=== PATIENT | female | born 1950 | race Caucasian/White ===

== ENCOUNTER → 2016-09-16 | Outpatient (CLI) | payer BC, MEDICARE ==
[~2016-09-16] MED LIST: /ATOR40TA OR; /GLYB5TA OR; ALTA10CA OR; AMLO5TAB OR; AMLODIPINE BENAZEP; AMLODIPINE BENAZEPRI OR; AMLODIPINE PO; ASPI81TA83 OR; AUGMENTIN PO; BENAZEPRIL PO; CARV25TA OR; CARVEDILOL PO; CIPRO PO; COLA100C2 OR; GLUC1000 OR; GLUC500T OR; HYDR25TA6 OR; MAGN500T2 OR; POTA20TA OR; PRILOSEC PO; STOMACH MED PO; XANA0.25 OR
--- NOTE | 2016-09-16 11:26 | REP ---
Left foot four views: Comparison is 09/30/2015. There is mild demineralization. There are lytic changes in the distal phalange of the second digit as an interval change, compatible with the clinical impression of osteomyelitis. There is diffuse soft tissue edema of the second digit. There are no other lytic, blastic or destructive skeletal changes. There are mild osteoarthritic changes in the tarsal ossicles. There is a calcaneal plantar spur. Impression: Soft tissue edema of the second digit with lytic changes in the distal phalange of the second digit compatible with the clinical impression of osteomyelitis. I suspect there is also mild soft tissue edema over the dorsum of the foot. Calcaneal plantar spur. Mild tarsal osteoarthritis. Signed by Navid Myers MD 09/16/2016 11:17 A
== END ==
LOC: M RAD 09:34
PROVIDERS: ATTEND Family Medicine

== ENCOUNTER → 2016-09-29 | Outpatient (CLI) | payer BC, MEDICARE ==
[~2016-09-29] MED LIST changes: +ALPR2TAB3 PO; +AMLO5TAB2 PO; +ASPI325T PO; +ATOR40TA PO; +CARV12.5 PO; -CARV25TA OR; +CARV25TA PO; +CEPH500C PO; +GLYB5TA PO; +MAGN400C2 PO; +METF500T PO; +SPIR25TA2 PO
[2016-09-29 10:39] LABS: MEAN CORPUSCULAR HEMOGLOBIN 27.1 pg (27.0-33.0); MEAN CORPUSCULAR HGB CONC 32.7 g/dl (32.0-36.5); MEAN CORPUSCULAR VOLUME 82.7 fl (80.0-96.0); RED CELL DISTRIBUTION WIDTH 14.7 % (11.5-14.5); WHITE BLOOD COUNT 7.3 K/mm3 (4.0-10.0)
[2016-09-29 10:43] LABS: INR 1.08
[2016-09-29 10:44] LABS: ALBUMIN 3.8 GM/DL (3.2-5.2); ALBUMIN/GLOBULIN RATIO 0.79 (1.00-1.93); ALKALINE PHOSPHATASE 188 U/L (45-117); ALT/SGPT 89 U/L (12-78); ANION GAP 7 MEQ/L (8-16); AST/SGOT 27 U/L (15-37); BILIRUBIN,TOTAL 0.9 MG/DL (0.2-1.0); BLOOD UREA NITROGEN 16 MG/DL (7-18); CALCIUM LEVEL 9.2 MG/DL (8.8-10.2); CARBON DIOXIDE LEVEL 29 MEQ/L (21-32); CHLORIDE LEVEL 100 MEQ/L (98-107); CREATININE FOR GFR 0.85 MG/DL (0.55-1.02); GLOMERULAR FILTRATION RATE > 60.0 (>45); GLUCOSE, FASTING 255 MG/DL (80-110); POTASSIUM SERUM 4.7 MEQ/L (3.5-5.1); SODIUM LEVEL 136 MEQ/L (136-145); TOTAL PROTEIN 8.6 GM/DL (6.4-8.2)
--- NOTE | 2016-09-29 12:45 | REP ---
Chest two views HISTORY: Hypertension Comparison: 02/10 15 The lungs are clear. The heart is normal in size. The pulmonary vasculature is normal in appearance. The bony structure is intact. IMPRESSION: No acute disease. Signed by Jono Giordano MD 09/29/2016 12:36 P
--- NOTE | 2016-09-29 18:59 | ECGEPIP ---
Stationary ECG Study [facility] Test Date: 2016-09-29 Pat Name: JUAN SHELDON Department: Room: - Gender: F Parole Or Probation Officer: NHAN : 1950 Requested By: Sivakumar Gordon Order Number: [id number] Reading MD: Regan Kiser Measurements Intervals [place] Rate: 65 P: [place]: 0 QRS: 51 QRSD: 77 T: 52 QT: 386 QTc: 404 Interpretive Statements ATRIAL FIBRILLATION Nonspecific ST-T wave abnormalities Electronically Signed On 09-29-2016 18:58:39 EDT by Regan Kiser
== END ==
LOC: M LAB 09:29
PROVIDERS: ATTEND Family Medicine
DX: I10 Essential (primary) hypertension (principal)

== ENCOUNTER → 2016-09-29 | Outpatient (REF) | payer BC, MEDICARE | LOC: M LAB REF 09:31 | PROVIDERS: ATTEND Podiatrist | DX: Z01.818 Encounter for other preprocedural examination (principal); M86.672 Other chronic osteomyelitis, left ankle and foot; L97.522 Non-pressure chronic ulcer of other part of left foot with fat layer exposed ==

== ENCOUNTER → 2016-10-02 | Day surgery (SDC) | payer BC, MEDICARE ==
[~2016-10-02] VITALS: Ht 160 cm; Wt 78.0 kg
[~2016-10-02] MED LIST changes: +BUPIVACAINE HCL 0.5% 30 ML VIAL As Ordered ONE; +HumaLOG INSULIN (NovoLOG) PER UNIT As Ordered ONE; +HumaLOG INSULIN (NovoLOG) PER UNIT SC ONE; +LIDOCAINE 2% INJ 100 MG/5 ML SDV (FOR ANES.) As Ordered ONE; +LIDOCAINE 2% MDV 20 ML VIAL As Ordered ONE; +LR 1,000 ML IV SCH; +MIDAZOLAM INJ 2 MG/2 ML VIAL (J2250) As Ordered ONE; +ONDANSETRON 4MG/2ML VIAL (J2405) IV PRN; +PERCOCET 5MG/325MG TAB PO PRN; +PROPOFOL 200 MG/20 ML VIAL As Ordered ONE; +VANCOMYCIN HCL 1,000 MG, VIAL MATE ADAPTER 1 EACH in D5W 250 ML IV ONE; +VANCOMYCIN HCL 500 MG/10 ML VIAL (J3370) As Ordered ONE; +fentaNYL 100 MCG/2 ML INJECTION (J3010) As Ordered ONE
--- NOTE | 2016-10-02 17:44 | REP ---
Portable left foot three views pos top study: Comparisons 09/16/2016. There has been resection of the second digit at mid shaft of the proximal phalange . Surgical dressing is noted. Osteoarthritis of the tarsal ossicles and calcaneal plantar spur are again noted. There is chronic cortical thickening of the fourth metatarsal, unchanged from 09/29/2005 , possibly old post-traumatic change. Signed by Navid Myers MD 10/02/2016 05:36 P
[2016-10-02 18:40] VITALS: BP 176/72
--- NOTE | 2016-10-02 21:53 | RO ---
DATE OF PROCEDURE: 10/02/2016 PREOPERATIVE DIAGNOSIS: Osteomyelitis distal phalanx second toe left foot. POSTOPERATIVE DIAGNOSES: Osteomyelitis distal phalanx second toe left foot. OPERATIVE PROCEDURE: Partial second toe amputation left foot. SURGEON: Ralph Christina DPM DUMP ATTENDANT: None ANESTHESIA: Local Monitored anesthesia care (MAC) IRRIGATION: 1 liter of vancomycin with a low pressure pulsatile lavage system. HEMOSTASIS: None. DESCRIPTION OF OPERATION: On 10/02/2016, this 66-year-old female was taken from her hospital room to the operating room and placed on the operating room table in the supine position. Following the induction of IV sedation and local and regional anesthesia, the left lower extremity was prepped and draped in the usual aseptic manner. Sterile draping was completed and the following procedure was performed: PARTIAL SECOND TOE AMPUTATION LEFT FOOT: Attention was directed to the patient's second toe of the left foot. There was noted to be an ulcer to bone on the distal phalanx. At this time a modified fish mouth incision was placed just proximal to the proximal interphalangeal joint. Dissection was carried straight to bone. All bleeders as encountered were electrocoagulated. Utilizing a power saw an osteotomy was performed at the proximal interphalangeal joint from dorsal to plantar through and through at the anatomical neck. The toe was removed. Distal phalanx was debrided and sent to pathology for aerobic and anaerobic cultures. The wound was flushed with copious amounts of dilute vancomycin with a low pressure pulsatile lavage system. The wound was closed with #3-0 nylon suture in a simple interrupted type fashion. Attention was directed toward bandaging with sterile compressive bandage applied consisting of Adaptic, 4 x 4s, 4 x 4 splints, Alfreda, Kerlix and Coban. The patient having apparently tolerated the surgical procedure well, was taken from the operating room to the recovery room, vital signs stable, patient afebrile for further monitoring by the anesthesia department. All surgical specimens removed during the operative procedure were sent to pathology for gross and microscopic examination. Postoperative instructions were given upon discharge.
== END ==
LOC: EEVIPCON 12:22 → M SDC 12:22
PROVIDERS: ATTEND Podiatrist
DX: M86.172 Other acute osteomyelitis, left ankle and foot (principal); E08.42 Diabetes mellitus due to underlying condition with diabetic polyneuropathy; I10 Essential (primary) hypertension; E78.5 Hyperlipidemia, unspecified; F41.9 Anxiety disorder, unspecified; M12.9 Arthropathy, unspecified; G47.30 Sleep apnea, unspecified; Z79.899 Other long term (current) drug therapy; Z79.84 Long term (current) use of oral hypoglycemic drugs; Z79.82 Long term (current) use of aspirin; Z87.891 Personal history of nicotine dependence; Z86.14 Personal history of Methicillin resistant Staphylococcus aureus infection
CPT/HCPCS: 28825; 73630; 87070; 87075; 87076; 87077; 87186; 88304; 88311; J2250; J3010; J3370

== ENCOUNTER → 2017-03-26 | Outpatient (REF) | payer BC ==
[~2017-03-26] MED LIST changes: -ATOR40TA PO; +ATOR40TA75 PO; -BUPIVACAINE HCL 0.5% 30 ML VIAL As Ordered ONE; -HumaLOG INSULIN (NovoLOG) PER UNIT As Ordered ONE; -HumaLOG INSULIN (NovoLOG) PER UNIT SC ONE; -LIDOCAINE 2% INJ 100 MG/5 ML SDV (FOR ANES.) As Ordered ONE; -LIDOCAINE 2% MDV 20 ML VIAL As Ordered ONE; -LR 1,000 ML IV SCH; -METF500T PO; +METF500T13 PO; -MIDAZOLAM INJ 2 MG/2 ML VIAL (J2250) As Ordered ONE; -ONDANSETRON 4MG/2ML VIAL (J2405) IV PRN; -PERCOCET 5MG/325MG TAB PO PRN; -PROPOFOL 200 MG/20 ML VIAL As Ordered ONE; -VANCOMYCIN HCL 1,000 MG, VIAL MATE ADAPTER 1 EACH in D5W 250 ML IV ONE; -VANCOMYCIN HCL 500 MG/10 ML VIAL (J3370) As Ordered ONE; -fentaNYL 100 MCG/2 ML INJECTION (J3010) As Ordered ONE
== END ==
LOC: M LAB REF 15:50
PROVIDERS: ATTEND Podiatrist
DX: L03.032 Cellulitis of left toe (principal)

== ENCOUNTER 2017-09-10 07:26 | Emergency (ER) | payer BC ==
[2017-09-10] MEDS: BACTRIM 160MG/800MG DS TAB PO (09:08)
== END 2017-09-10 09:11 | disposition home or self-care (01) ==
LOC: M ED 07:26
DX: L02.01 Cutaneous abscess of face (principal); L03.211 Cellulitis of face; L02.413 Cutaneous abscess of right upper limb; L03.113 Cellulitis of right upper limb; I10 Essential (primary) hypertension; E11.9 Type 2 diabetes mellitus without complications; E78.00 Pure hypercholesterolemia, unspecified; G47.30 Sleep apnea, unspecified; F41.9 Anxiety disorder, unspecified; Z86.14 Personal history of Methicillin resistant Staphylococcus aureus infection; Z79.899 Other long term (current) drug therapy; Z79.82 Long term (current) use of aspirin; Z79.84 Long term (current) use of oral hypoglycemic drugs; Z87.891 Personal history of nicotine dependence
CPT/HCPCS: 87186

== ENCOUNTER 2018-02-05 07:37 | Emergency (ER) | payer BC, MEDICARE ==
[2018-02-05 08:34] LABS: BASO % 0.4 % (0.0-1.0); EOS # 0.3 10^3/uL (0.0-0.50); EOS % 3.6 % (0.0-3.0); HEMATOCRIT 33.7 % (36.0-47.0); HEMOGLOBIN 11.3 g/dl (12.0-15.5); IMMATURE GRANULOCYTE % 0.5 % (0-3.0); LYMPH # 1.1 10^3/uL (1.5-4.5); LYMPH % 11.9 % (24.0-44.0); MEAN CORPUSCULAR HGB CONC 33.5 g/dl (32.0-36.5); MEAN CORPUSCULAR VOLUME 83.4 fl (80.0-96.0); MONO # 0.6 10^3/uL (0.0-0.8); MONO % 6.4 % (0.0-5.0); NEUTROPHILS % 77.2 % (36.0-66.0); PLATELET COUNT, AUTOMATED 187 10^3/uL (150-450); RED BLOOD COUNT 4.04 10^6/uL (4.00-5.40); RED CELL DISTRIBUTION WIDTH 13.6 % (11.5-14.5); WHITE BLOOD COUNT 9.1 10^3/uL (4.0-10.0)
[2018-02-05 08:57] LABS: ERYTHROCYTE SEDIMENTATION RATE 52 mm/hr (0-30)
[2018-02-05 09:09] LABS: ANION GAP 9 MEQ/L (8-16); BLOOD UREA NITROGEN 39 MG/DL (7-18); C REACTIVE PROTEIN QUANTITATIV 1.36 MG/DL (0.00-0.30); CALCIUM LEVEL 9.3 MG/DL (8.8-10.2); CARBON DIOXIDE LEVEL 26 MEQ/L (21-32); CHLORIDE LEVEL 107 MEQ/L (98-107); CREATININE FOR GFR 1.37 MG/DL (0.55-1.30); GLOMERULAR FILTRATION RATE 40.6 (>39); GLUCOSE, FASTING 196 MG/DL (70-100); POTASSIUM SERUM 4.5 MEQ/L (3.5-5.1); SODIUM LEVEL 142 MEQ/L (136-145)
== END 2018-02-05 09:46 | disposition home or self-care (01) ==
LOC: M ED 07:37
DX: N28.9 Disorder of kidney and ureter, unspecified (principal); I87.2 Venous insufficiency (chronic) (peripheral); E11.22 Type 2 diabetes mellitus with diabetic chronic kidney disease; L97.229 Non-pressure chronic ulcer of left calf with unspecified severity; L97.219 Non-pressure chronic ulcer of right calf with unspecified severity; I10 Essential (primary) hypertension; G47.33 Obstructive sleep apnea (adult) (pediatric); K21.9 Gastro-esophageal reflux disease without esophagitis; M54.9 Dorsalgia, unspecified; F41.9 Anxiety disorder, unspecified; Z89.422 Acquired absence of other left toe(s); Z87.891 Personal history of nicotine dependence; Z79.899 Other long term (current) drug therapy; Z79.82 Long term (current) use of aspirin; Z79.84 Long term (current) use of oral hypoglycemic drugs
CPT/HCPCS: 93970

== ENCOUNTER 2018-02-19 06:05 | Emergency (ER) | payer OTHER, BC, MEDICARE ==
[2018-02-19] MEDS: IBUPROFEN 600 MG TAB PO (06:45)
[2018-02-19] MEDS: NORCO 5/325MG TABLET (BULK FOR ED) PO (07:08)
== END 2018-02-19 07:11 | disposition home or self-care (01) ==
LOC: M ED 06:05
DX: S80.02XA Contusion of left knee, initial encounter (principal); W01.0XXA Fall on same level from slipping, tripping and stumbling without subsequent striking against object, initial encounter; Y92.59 Other trade areas as the place of occurrence of the external cause; Y99.0 Civilian activity done for income or pay; M17.12 Unilateral primary osteoarthritis, left knee; I10 Essential (primary) hypertension; E11.9 Type 2 diabetes mellitus without complications; F41.9 Anxiety disorder, unspecified; E78.9 Disorder of lipoprotein metabolism, unspecified; K21.9 Gastro-esophageal reflux disease without esophagitis; G47.33 Obstructive sleep apnea (adult) (pediatric); Z79.899 Other long term (current) drug therapy; Z79.82 Long term (current) use of aspirin; Z79.84 Long term (current) use of oral hypoglycemic drugs
CPT/HCPCS: 73564

== ENCOUNTER → 2018-03-17 | Outpatient (REF) | payer BC, MEDICARE | LOC: M LAB REF 17:43 | DX: L03.039 Cellulitis of unspecified toe (principal) | CPT/HCPCS: 87186 ==

== ENCOUNTER → 2018-07-20 | Outpatient (REF) | payer BC, MEDICARE ==
[~2018-07-20] MED LIST changes: -AMLO5TAB2 PO; +AMLO5TAB6 PO; +BACT800T5 PO; +CLEO300C2 PO; +MELO7.5T7; +SPIR-10 PO; -SPIR25TA2 PO
== END ==
LOC: M LAB REF 13:23
PROVIDERS: ATTEND Podiatrist
DX: L03.032 Cellulitis of left toe (principal)

== ENCOUNTER → 2018-07-29 | Outpatient (CLI) | payer BC, MEDICARE ==
[~2018-07-29] MED LIST changes: +SULF1TAB72 PO
[2018-07-29 14:04] LABS: BASO % 0.3 % (0.0-1.0); EOS # 0.2 10^3/uL (0.0-0.50); EOS % 3.1 % (0.0-3.0); HEMATOCRIT 30.1 % (36.0-47.0); HEMOGLOBIN 9.7 g/dl (12.0-15.5); LYMPH # 0.7 10^3/uL (1.5-4.5); LYMPH % 12.4 % (24.0-44.0); MEAN CORPUSCULAR HEMOGLOBIN 28.5 pg (27.0-33.0); MEAN CORPUSCULAR HGB CONC 32.2 g/dl (32.0-36.5); MEAN CORPUSCULAR VOLUME 88.5 fl (80.0-96.0); MONO # 0.3 10^3/uL (0.0-0.8); MONO % 5.8 % (0.0-5.0); NEUTROPHILS # 4.5 10^3/uL (1.8-7.7); NEUTROPHILS % 77.9 % (36.0-66.0); PLATELET COUNT, AUTOMATED 171 10^3/uL (150-450); WHITE BLOOD COUNT 5.8 10^3/uL (4.0-10.0)
[2018-07-29 14:19] LABS: ALBUMIN 3.6 GM/DL (3.2-5.2); BILIRUBIN,TOTAL 0.6 MG/DL (0.2-1.0); CALCIUM LEVEL 8.7 MG/DL (8.8-10.2); CREATININE FOR GFR 1.81 MG/DL (0.55-1.30); GLOMERULAR FILTRATION RATE 29.4 (>39); POTASSIUM SERUM 5.4 MEQ/L (3.5-5.1); TOTAL PROTEIN 7.5 GM/DL (6.4-8.2)
--- NOTE | 2018-07-29 14:30 | REP ---
Chest two views HISTORY: Chronic ulcer Comparison: 09/29/2016 The lungs are clear. The heart is normal in size. The pulmonary vasculature is normal in appearance. The bony structure is intact. IMPRESSION: No acute disease. Electronically Signed by Jono Giordano MD 07/29/2018 02:22 P
== END ==
LOC: M LAB 13:31
PROVIDERS: ATTEND Podiatrist
DX: L97.509 Non-pressure chronic ulcer of other part of unspecified foot with unspecified severity (principal)

== ENCOUNTER 2018-08-05 10:21 | Day surgery (SDC) | payer BC, MEDICARE ==
[~2018-08-05] VITALS: Ht 162.6 cm; Wt 79.4 kg
[~2018-08-05 10:21] MED LIST changes: +LR 1,000 ML IV SCH
[2018-08-05] MEDS ORDERED: ONDANSETRON 4MG/2ML VIAL (J2405) As Ordered ONE (10:47)
[2018-08-05] MEDS ORDERED: LIDOCAINE 2% INJ 100 MG/5 ML SDV (FOR ANES.) As Ordered ONE (10:47)
[2018-08-05] MEDS ORDERED: PROPOFOL 200 MG/20 ML VIAL As Ordered ONE (10:47)
[2018-08-05] MEDS ORDERED: fentaNYL 100 MCG/2 ML INJECTION (J3010) As Ordered ONE (10:47)
[2018-08-05] MEDS ORDERED: MIDAZOLAM INJ 2 MG/2 ML VIAL (J2250) As Ordered ONE (10:47)
[2018-08-05] MEDS ORDERED: BUPIVACAINE HCL 0.5% 10 ML VIAL As Ordered ONE (13:32)
[2018-08-05] MEDS ORDERED: LIDOCAINE 2% MDV 20 ML VIAL As Ordered ONE (13:32)
[2018-08-05] MEDS ORDERED: ROPIvacaine 0.5% 30 ML INJECTION (J2795 PER 1MG) As Ordered ONE (13:32)
[2018-08-05 15:10] VITALS: BP 137/65
--- NOTE | 2018-08-06 08:29 | RO ---
DATE OF PROCEDURE: 08/05/2018 PREPROCEDURE DIAGNOSIS: Osteomyelitis. 3rd toe left foot, distal phalanx. POSTPROCEDURE DIAGNOSIS: Osteomyelitis. 3rd toe left foot, distal phalanx. PROCEDURE: Partial 3rd toe amputation, left foot. SURGEON: Dr. Ralph Christina. ECONOMETRICS PROFESSOR: None ANESTHESIA: Local monitored anesthesia care (MAC). IRRIGATION: Dilute gentamicin solution with low pressure pulsed lavage system. ESTIMATED BLOOD LOSS: Less than 1 mL. DESCRIPTION OF PROCEDURE: On 08/05/2018, this 68-year-old female was taken from her hospital room to the operating room and placed on the operating table in supine position. Following the induction of IV sedation, local and regional anesthesia, the left lower extremity was prepped and draped in the usual aseptic manner. Sterile draping was completed and the following procedure was performed. PARTIAL 3RD TOE AMPUTATION, LEFT FOOT: Attention directed to the patient's 3rd toe where a modified fish-mouth incision was performed surrounding a stage IV ulcer with the distal phalanx sticking out the end of the 3rd toe. The incision was straight to bone. The toe was disarticulated from the proximal interphalangeal joint. The flap of skin was then retracted in a dorsal direction and an osteotomy was performed just proximal to the articular cartilage from dorsal to planar. All bleeders, as encountered were electrocoagulated. The wound was then flushed with 1 liter of dilute vancomycin solution with low pressure pulse lavage system. The wound was closed with #3-0 nylon suture in a simple interrupted type fashion. A dry sterile dressing was applied consisting of Adaptic, 4 x 4s, Kerlix and Coban. Patient having apparently tolerated the procedure well was taken from the operating room (OR) to the recovery room for further monitoring by the anesthesia department. RAULITO
== END 2018-08-05 15:20 | disposition home or self-care (01) ==
LOC: M SDC 10:21
PROVIDERS: ATTEND Podiatrist
DX: M86.172 Other acute osteomyelitis, left ankle and foot (principal); M79.675 Pain in left toe(s); L97.524 Non-pressure chronic ulcer of other part of left foot with necrosis of bone; E11.42 Type 2 diabetes mellitus with diabetic polyneuropathy; E11.51 Type 2 diabetes mellitus with diabetic peripheral angiopathy without gangrene; B35.1 Tinea unguium; Z79.84 Long term (current) use of oral hypoglycemic drugs; Z79.899 Other long term (current) drug therapy
CPT/HCPCS: 28825; 73630; 87070; 87075; 87077; 87186; 87205; 88305; 88311; J2250; J2405; J3010

== ENCOUNTER → 2018-09-26 | Outpatient (REF) | payer BC, MEDICARE ==
[~2018-09-26] MED LIST changes: -/ATOR40TA OR; -/GLYB5TA OR; +ASPI-1 PO; -ASPI325T PO; +GLYB1TAB29 OR; +LIPI1TAB2 OR; -LR 1,000 ML IV SCH
== END ==
LOC: M LAB REF 15:46
PROVIDERS: ATTEND Podiatrist
DX: M79.675 Pain in left toe(s) (principal)

== ENCOUNTER → 2019-02-14 | Outpatient (REF) | payer BC, MEDICARE | LOC: M LAB REF 18:57 | PROVIDERS: ATTEND Podiatrist | DX: L03.032 Cellulitis of left toe (principal); M79.675 Pain in left toe(s) ==

== ENCOUNTER 2019-04-09 06:06 | Emergency (ER) | payer BC, MEDICARE ==
[~2019-04-09] VITALS: Ht 162.6 cm; Wt 79.5 kg
[2019-04-09] MEDS ORDERED: ONDANSETRON 4MG/2ML VIAL (J2405) IV ONE ×2 (06:45→08:00)
[2019-04-09] MEDS ORDERED: KETOROLAC 30 MG/ML VIAL (J1885) IV ONE (06:45)
[2019-04-09 06:47] LABS: BASO % 0.3 % (0.0-1.0); EOS % 0.4 % (0.0-3.0); HEMATOCRIT 37.2 % (36.0-47.0); HEMOGLOBIN 12.4 g/dl (12.0-15.5); LYMPH # 0.7 10^3/uL (1.5-5.0); LYMPH % 6.6 % (24.0-44.0); MEAN CORPUSCULAR HEMOGLOBIN 29.3 pg (27.0-33.0); MEAN CORPUSCULAR HGB CONC 33.3 g/dl (32.0-36.5); MEAN CORPUSCULAR VOLUME 87.9 fl (80.0-96.0); MONO # 0.6 10^3/uL (0.0-0.8); MONO % 5.8 % (0.0-5.0); NEUTROPHILS % 86.2 % (36.0-66.0); PLATELET COUNT, AUTOMATED 179 10^3/uL (150-450); RED BLOOD COUNT 4.23 10^6/uL (4.00-5.40); WHITE BLOOD COUNT 10.4 10^3/uL (4.0-10.0)
[2019-04-09 07:03] LABS: ALBUMIN 4.1 GM/DL (3.2-5.2); ALT/SGPT 21 U/L (12-78); AMYLASE 35 U/L (25-115); BILIRUBIN,DIRECT 0.3 MG/DL (0.0-0.2); BILIRUBIN,TOTAL 1.1 MG/DL (0.2-1.0); BLOOD UREA NITROGEN 16 MG/DL (7-18); CALCIUM LEVEL 9.8 MG/DL (8.8-10.2); CARBON DIOXIDE LEVEL 24 MEQ/L (21-32); CHLORIDE LEVEL 102 MEQ/L (98-107); CK-MB VALUE MASS 1.6 NG/ML (<3.6); CPK CREATINE PHOSPHOKINASE 120 U/L (26-192); CREATININE FOR GFR 1.03 MG/DL (0.55-1.30); GLOMERULAR FILTRATION RATE 56.2 (>39); GLUCOSE, FASTING 198 MG/DL (70-100); LIPASE 46 U/L (73-393); MB/CK RELATIVE INDEX 1.33 (< OR =4); POTASSIUM SERUM 4.3 MEQ/L (3.5-5.1); SODIUM LEVEL 133 MEQ/L (136-145); TOTAL PROTEIN 9.3 GM/DL (6.4-8.2); TROPONIN I < 0.02 NG/ML (< 0.10)
[2019-04-09 07:27] LABS: INR 1.17; PROTHROMBIN TIME 14.7 SECONDS (11.8-14.0)
[2019-04-09 07:28] LABS: PARTIAL THROMBOPLASTIN TIME 34.4 SECONDS (25.0-38.4)
--- NOTE | 2019-04-09 07:51 | REPVR ---
PROCEDURE INFORMATION: Exam: CT Head Without Contrast Exam date and time: 04/09/2019 6:56 AM Clinical history: 69 years old, female; Altered mental status/memory loss; Confusion or disorientation; Additional info: AMS TECHNIQUE: Imaging protocol: Computed tomography of the head without contrast. Radiation optimization: All CT scans at this facility use at least one of these dose optimization techniques: automated exposure control; mA and/or kV adjustment per patient size (includes targeted exams where dose is matched to clinical indication); or iterative reconstruction. COMPARISON: CT Head without contrast 10/01/2012 10:07 PM FINDINGS: Brain: There is mild, diffuse parenchymal volume loss, with progression compared to 2012. There is mild diffuse heterogeneity of the white matter attenuation, consistent with chronic white matter ischemic changes. There is a small rounded area of low attenuation in the right subinsular region, which may be a lacunar infarct. It is not seen on the prior exam from 2012, but the age is indeterminate, and it may be chronic. No parenchymal mass lesions or mass effect are identified. There is no evidence of intracranial hemorrhage. Ventricles: The ventricular system demonstrates mild diffuse compensatory enlargement, slightly larger than in 2013. Bones/joints: No acute fractures of the skull are identified. Sinuses: The visualized paranasal sinuses are clear. Mastoid air cells: The mastoid air cells are clear. Soft tissues: The soft tissues appear unremarkable. Vasculature: Atherosclerotic calcifications are seen in the cerebral arteries at the skull base. IMPRESSION: 1. Mild diffuse bone loss, with progression compared to 2012. 2. Small focal area of low attenuation in the right subinsular region, which may be a lacunar infarct, of indeterminate age. 3. No evidence of acute intracranial hemorrhage. Electronically signed by: Ana Roberto On 04/09/2019 07:50:35 AM
--- NOTE | 2019-04-09 07:58 | REPVR ---
PROCEDURE INFORMATION: Exam: US Abdomen Limited, Right Upper Quadrant Exam date and time: 04/09/2019 7:34 AM Clinical history: 69 years old, female; Abdominal pain; Additional info: Ruq pain, nausea TECHNIQUE: Imaging protocol: Real-time ultrasound of the abdomen with image documentation. Examination was focused on the right upper quadrant. COMPARISON: GALLBLADDER US 03/10/2013 8:[address] ABD PELVIS W/O CONTRAST 04/19/2014 8:47:51 AM FINDINGS: Liver: There 2 shadowing echogenic foci in the right lobe of the liver, corresponding with calcifications seen on the prior CT scan. The liver appears mildly echogenic and somewhat coarse in echotexture. Gallbladder: The gallbladder is distended, measuring 13.6 x 5.3 cm. The gallbladder wall is slightly thickened at 4 mm. Small mobile stones and sludge are seen in the gallbladder. The cytology technologist does not report tenderness over the gallbladder. Common bile duct: The common bile duct is dilated measuring up to 12 mm in diameter, compared to a measurement of 9 mm obtained on the prior ultrasound from 2012. No significant intrahepatic biliary ductal dilation is identified. Pancreas: The pancreas is obscured. Right kidney: The right kidney is normal in size and echogenicity with no hydronephrosis or stones identified. The right kidney measures 10.8 cm in length. IMPRESSION: 1. Distended gallbladder with slight thickening of the gallbladder wall and mobile stones in the gallbladder. The findings are suspicious for acute cholecystitis but the technologist did not elicit a sonographic Armijo sign. 2. Dilation of the common bile duct to 12 mm compared to 9 mm on the prior ultrasound. No significant intrahepatic ductal dilation identified. 3. Mildly echogenic liver. Electronically signed by: Ana Roberto On 04/09/2019 07:58:01 AM
[2019-04-09 08:01] VITALS: BP 174/74
[2019-04-09] MEDS ORDERED: ZOFR4TAB16 PO (08:15)
--- NOTE | 2019-04-10 19:56 | ECGEPIP ---
[facility] - ED Test Date: 2019-04-09 Pat Name: JUAN SHELDON Department: Room: - Gender: Female Alligator Trapper: MASOUD : 1950 Requested By: MODESTO Driver PA-C Order Number: [id number] Reading MD: Erickson Robb Measurements Intervals [place] Rate: 103 P: [place]: 0 QRS: 49 QRSD: 97 T: 60 QT: 345 QTc: 453 Interpretive Statements ATRIAL FIBRILLATION WITH RAPID VENTRICULAR RESPONSE NONSPECIFIC ST & T-WAVE ABNORMALITY VS ISCHEMIA - INFEROLATERAL LEADS ABNORMAL RHYTHM ECG LOW QRS VOLTAGE LIMB LEADS CW 09/29/[address] T WAVE CHANGES VS ISCHEMIA INFEROLATERAL LEADS CLINICAL CORRELATION ADVISED Electronically Signed on 04-10-2019 19:56:33 EDT by Erickson Robb
--- NOTE | 2019-04-11 10:57 | ED PDOC ---
Post-Departure Follow-Up dr llanos and dr velarde faxed formal report of us for fu Erickson Ghotra MD Apr 11, 2019 10:57
== END 2019-04-09 08:21 | disposition home or self-care (01) ==
LOC: M ED 06:06
DX: K80.20 Calculus of gallbladder without cholecystitis without obstruction (principal); R41.82 Altered mental status, unspecified; I48.91 Unspecified atrial fibrillation; E78.5 Hyperlipidemia, unspecified; I10 Essential (primary) hypertension; G47.30 Sleep apnea, unspecified; K21.9 Gastro-esophageal reflux disease without esophagitis; E11.319 Type 2 diabetes mellitus with unspecified diabetic retinopathy without macular edema; Z79.899 Other long term (current) drug therapy
CPT/HCPCS: 36415; 76705; 80048; 80076; 82150; 82550; 82553; 83690; 84484; 85025; 85610; 85730; 93005; 93041; 96374; 96375; 96376; 99284; J1885; J2405

== ENCOUNTER → 2019-05-09 | Outpatient (REF) | payer BC, MEDICARE ==
[~2019-05-09] MED LIST changes: +BAYE325T16 PO; +CHOL100029 PO; +CRAN400C PO; +FISH1000 PO; +IRON27TA2 PO; +ZOFR4TAB16 PO
== END ==
LOC: M LAB REF 12:49
PROVIDERS: ATTEND Podiatrist
DX: M86.9 Osteomyelitis, unspecified (principal); M79.672 Pain in left foot

== ENCOUNTER → 2019-05-16 | Outpatient (CLI) | payer BC, MEDICARE ==
[2019-05-16 12:29] LABS: HEMATOCRIT 31.9 % (36.0-47.0); HEMOGLOBIN 10.3 g/dl (12.0-15.5); MEAN CORPUSCULAR HEMOGLOBIN 28.2 pg (27.0-33.0); MEAN CORPUSCULAR HGB CONC 32.3 g/dl (32.0-36.5); MEAN CORPUSCULAR VOLUME 87.4 fl (80.0-96.0); PLATELET COUNT, AUTOMATED 176 10^3/uL (150-450); RED BLOOD COUNT 3.65 10^6/uL (4.00-5.40); WHITE BLOOD COUNT 5.8 10^3/uL (4.0-10.0)
--- NOTE | 2019-05-16 12:31 | REP ---
Clinical: Preoperative assessment . Comparison: 07/29/2018 . Technique: PA and lateral. Findings: The mediastinum and cardiac silhouette are normal. The lung giron are clear and without acute consolidation, effusion, or pneumothorax. The skeletal structures are intact and normal. Impression: 1. No acute cardiopulmonary process. Electronically Signed by Jose C Coppola MD 05/16/2019 12:23 P
[2019-05-16 12:41] LABS: INR 1.2; PROTHROMBIN TIME 14.9 SECONDS (11.8-14.0)
[2019-05-16 13:14] LABS: ALBUMIN 3.4 GM/DL (3.2-5.2); BILIRUBIN,TOTAL 0.9 MG/DL (0.2-1.0); CALCIUM LEVEL 9.5 MG/DL (8.8-10.2); CHOLESTEROL RISK RATIO 2.875 (<5); CREATININE FOR GFR 1.47 MG/DL (0.55-1.30); GLOMERULAR FILTRATION RATE 37.3 (>39); POTASSIUM SERUM 4.7 MEQ/L (3.5-5.1); THYROID STIMULATING HORMONE 0.904 uIU/ML (0.358-3.740); TOTAL 25(OH) VITAMIN D 46.8 NG/ML (30.0-100.0); TOTAL PROTEIN 7.8 GM/DL (6.4-8.2)
[2019-05-16 13:37] LABS: HEMOGLOBIN A1c 7.8 %
--- NOTE | 2019-05-17 17:28 | ECGEPIP ---
[facility] Test Date: 2019-05-16 Pat Name: JUAN SHELDON Department: Room: - Gender: Female Senior Teller: GERTRUDE : 1950 Requested By: Sivakumar Gordon Order Number: [id number] Reading MD: Regan Kiser Measurements Intervals [place] Rate: 71 P: [place]: 0 QRS: 51 QRSD: 94 T: 32 QT: 401 QTc: 436 Interpretive Statements ATRIAL FIBRILLATION NONSPECIFIC ST & T-WAVE ABNORMALITY Rate decreased from tracing done 04-09-19 Electronically Signed on 05-17-2019 17:27:51 EST by Regan Kiser
== END ==
LOC: M LAB 11:34
PROVIDERS: ATTEND Family Medicine
DX: Z01.818 Encounter for other preprocedural examination (principal)

== ENCOUNTER → 2019-05-16 | Outpatient (CLI) | payer BC, MEDICARE ==
[2019-05-16 13:00] LABS: BILIRUBIN,DIRECT 0.3 MG/DL (0.0-0.2); BILIRUBIN,TOTAL 1.2 MG/DL (0.2-1.0)
== END ==
LOC: M LAB 11:30
PROVIDERS: ATTEND Surgery
DX: K80.20 Calculus of gallbladder without cholecystitis without obstruction (principal)

== ENCOUNTER 2019-06-12 06:00 | Day surgery (SDC) | payer BC, MEDICARE ==
[~2019-06-12] VITALS: Ht 162.6 cm; Wt 71.2 kg
[~2019-06-12 06:00] MED LIST changes: +LIDOCAINE 1% MDV 20ML VIAL SQ PRN; +LR 1,000 ML IV ONE; -SULF1TAB72 PO; +SULF400T14 PO
[2019-06-12] MEDS ORDERED: BUPIVACAINE/EPIN 0.25% 30 ML VIAL As Ordered ONE (07:09)
[2019-06-12] MEDS ORDERED: PROPOFOL 200 MG/20 ML VIAL As Ordered ONE (07:15)
[2019-06-12] MEDS ORDERED: ROCURONIUM BROMIDE 50 MG/5 ML VIAL As Ordered ONE (07:15)
[2019-06-12] MEDS ORDERED: fentaNYL 250 MCG/5 ML INJECTION (J3010) As Ordered ONE (07:15)
[2019-06-12] MEDS ORDERED: LIDOCAINE 2% INJ 100 MG/5 ML SDV (FOR ANES.) As Ordered ONE (07:15)
[2019-06-12] MEDS ORDERED: MIDAZOLAM INJ 2 MG/2 ML VIAL (J2250) As Ordered ONE (07:16)
[2019-06-12] MEDS ORDERED: HumaLOG INSULIN (NovoLOG) PER UNIT As Ordered ONE (07:19)
[2019-06-12] MEDS ORDERED: KETOROLAC 60 MG/2 ML VIAL (J1885) As Ordered ONE (07:59)
[2019-06-12] MEDS ORDERED: METOCLOPRAMIDE INJ 10MG/2ML VIAL (J2765) As Ordered ONE (07:59)
[2019-06-12] MEDS ORDERED: ONDANSETRON 4MG/2ML VIAL (J2405) As Ordered ONE (07:59)
[2019-06-12] MEDS ORDERED: HumuLIN R (REGULAR) INSULIN (NovoLIN R) **100U/ML** PER UNIT SC ONE (08:00)
[2019-06-12] MEDS ORDERED: SUGAMMADEX SODIUM 500 MG/5 ML VIAL (BRIDION) As Ordered ONE (08:00)
[2019-06-12] MEDS ORDERED: ACETAMINOPHEN 1000MG 100ML IV BTL (OFIRMEV) (J0131 PER 10MG) As Ordered ONE (08:21)
[2019-06-12] MEDS ORDERED: ONDANSETRON 4MG/2ML VIAL (J2405) IV PRN (09:15)
[2019-06-12] MEDS ORDERED: LR 1,000 ML IV SCH (09:15)
[2019-06-12] MEDS ORDERED: HYDROMORPHONE HCL 0.5 MG/ 0.5 ML SYRINGE (J1170 PER 1) IV PRN (09:15)
[2019-06-12] MEDS ORDERED: fentaNYL 100 MCG/2 ML INJECTION (J3010) IV PRN (09:15)
[2019-06-12] MEDS: oxyCODONE 5MG TAB PO PRN ×2 (09:51→10:45)
[2019-06-12] MEDS ORDERED: NORCO, ANEXSIA 5/325MG TABLET (HYDROcodone/ACETAMINOPHEN) PO PRN (10:16)
[2019-06-12] MEDS ORDERED: oxyCODONE 5MG TAB As Ordered ONE (10:43)
--- NOTE | 2019-06-12 11:52 | RO ---
DATE OF OPERATION: 06/12/2019 PREOPERATIVE DIAGNOSIS: Symptomatic cholelithiasis. POSTOPERATIVE DIAGNOSIS: Symptomatic cholelithiasis. PROCEDURE: Robotic cholecystectomy. SURGEON: Navid Coyne DO HOTEL ATTENDANT: None. ANESTHESIA: General. ESTIMATED BLOOD LOSS (EBL): 5. COMPLICATION: None. INDICATION FOR PROCEDURE: The patient is a 69-year-old female with persistent right upper quadrant pain, found have symptomatic cholelithiasis. Recommendation was to proceed with robotic cholecystectomy. Risks and benefits of the procedure not limited to but including bleeding, infection, hernia formation, damage to surrounding structures, need for further surgery were discussed in detail with the patient, and informed consent was obtained, and procedure was planned. DESCRIPTION OF PROCEDURE: The patient brought back to operating room #7 after sufficient sedation. The abdomen was sterilely prepped and draped. Next, time-out was done to confirm proper patient and proper procedure. Following that, an 8-mm incision was made in the left lower quadrant, Veress needle inserted, and the abdomen was insufflated to 15 mmHg. Next, Veress needle was removed. An 8-mm Optiview port was used to gain access to the abdomen. The abdomen was entered. Three more robotic ports were placed across the upper abdomen. The robot was then connected to the ports. Next, from the console, the fundus of the gallbladder was elevated up towards right shoulder. The cystic duct and cystic artery were carefully dissected free using a combination of blunt and sharp dissection. Once they were both clearly identified, they were both doubly clipped and cut. The gallbladder was then dissected free from the gallbladder fossa using electrocautery. It was removed intact without any leakage of bile, placed inside of a 5-mm Endo Catch bag, and brought out through the most lateral port site on the right. Once the gallbladder was removed, the fascia and peritoneum at the lateral port site on the right was closed with a 2-0 V-Loc suture. Once that was completed, the abdomen was desufflated. Skin incisions were closed with 4-0 Vicryl subcuticular sutures. The abdomen was cleaned and dried. Steri-Strips, 4 x 4, and tape were applied, thus ending the procedure.
[2019-06-12 12:00] VITALS: BP 150/66
== END 2019-06-12 12:05 | disposition home or self-care (01) ==
LOC: M SDC 06:00
PROVIDERS: ATTEND Surgery
DX: K80.10 Calculus of gallbladder with chronic cholecystitis without obstruction (principal); I10 Essential (primary) hypertension; E78.00 Pure hypercholesterolemia, unspecified; E11.621 Type 2 diabetes mellitus with foot ulcer; F41.9 Anxiety disorder, unspecified; G47.30 Sleep apnea, unspecified; Z86.14 Personal history of Methicillin resistant Staphylococcus aureus infection; Z79.899 Other long term (current) drug therapy; Z79.82 Long term (current) use of aspirin; Z79.84 Long term (current) use of oral hypoglycemic drugs
CPT/HCPCS: 47562; 88304; J0131; J1885; J2250; J2405; J2765; J3010

== ENCOUNTER 2019-07-12 20:03 | Emergency (ER) | payer BC, MEDICARE ==
[~2019-07-12] VITALS: Ht 162.6 cm; Wt 70.9 kg
[~2019-07-12 20:03] MED LIST changes: -LIDOCAINE 1% MDV 20ML VIAL SQ PRN; -LR 1,000 ML IV ONE
[2019-07-12 20:41] LABS: BASO % 0.3 % (0.0-1.0); EOS # 0.1 10^3/uL (0.0-0.5); EOS % 0.9 % (0.0-3.0); HEMOGLOBIN 11.6 g/dl (12.0-15.5); LYMPH # 0.9 10^3/uL (1.5-5.0); LYMPH % 8.9 % (24.0-44.0); MEAN CORPUSCULAR HEMOGLOBIN 27.8 pg (27.0-33.0); MEAN CORPUSCULAR HGB CONC 32.2 g/dl (32.0-36.5); MEAN CORPUSCULAR VOLUME 86.1 fl (80.0-96.0); MONO # 0.5 10^3/uL (0.0-0.8); MONO % 4.7 % (0.0-5.0); NEUTROPHILS # 8.1 10^3/uL (1.5-8.5); NEUTROPHILS % 84.4 % (36.0-66.0); PLATELET COUNT, AUTOMATED 167 10^3/uL (150-450); RED BLOOD COUNT 4.18 10^6/uL (4.00-5.40); WHITE BLOOD COUNT 9.6 10^3/uL (4.0-10.0)
[2019-07-12 21:11] LABS: BILIRUBIN,DIRECT 0.5 MG/DL (0.0-0.2); BILIRUBIN,TOTAL 1.4 MG/DL (0.2-1.0); TOTAL PROTEIN 8.2 GM/DL (6.4-8.2)
[2019-07-12] MEDS ORDERED: OMEP-218 PO (21:11)
[2019-07-12] MEDS ORDERED: NS 1,000 ML IV ONE (21:45)
[2019-07-13] MEDS ORDERED: NS 500 ML IV ONE (02:30)
[2019-07-13 03:45] VITALS: BP 142/76
== END 2019-07-13 04:02 | disposition home or self-care (01) ==
LOC: M ED 20:03
DX: R19.7 Diarrhea, unspecified (principal); E86.0 Dehydration; I48.91 Unspecified atrial fibrillation; I10 Essential (primary) hypertension; E78.5 Hyperlipidemia, unspecified; K21.9 Gastro-esophageal reflux disease without esophagitis; Z79.899 Other long term (current) drug therapy; Z79.84 Long term (current) use of oral hypoglycemic drugs

== ENCOUNTER → 2019-07-15 | Outpatient (REF) | payer BC, MEDICARE ==
[~2019-07-15] MED LIST changes: +OMEP-218 PO
== END ==
LOC: M LAB REF 10:00
DX: K92.9 Disease of digestive system, unspecified (principal)

== ENCOUNTER → 2019-10-24 | Outpatient (CLI) | payer BC, MEDICARE ==
[~2019-10-24] MED LIST changes: +ALPR0.5T3 PO; +AMLO1TAB24 PO; +AMLO1TAB25 PO; -AMLO5TAB6 PO; +ASPI325T55 PO; +CHOL4PW PO; -GLYB5TA PO; +GLYB5TAB6 PO; +NOXI1TAB PO; +ROPI1TAB3 PO
[2019-10-24 14:44] LABS: HEMATOCRIT 31.3 % (36.0-47.0); HEMOGLOBIN 10.3 g/dl (12.0-15.5); MEAN CORPUSCULAR HEMOGLOBIN 28.4 pg (27.0-33.0); MEAN CORPUSCULAR HGB CONC 32.9 g/dl (32.0-36.5); MEAN CORPUSCULAR VOLUME 86.2 fl (80.0-96.0); PLATELET COUNT, AUTOMATED 168 10^3/uL (150-450); RED BLOOD COUNT 3.63 10^6/uL (4.00-5.40); WHITE BLOOD COUNT 4.7 10^3/uL (4.0-10.0)
[2019-10-24 15:03] LABS: INR 1.22; PROTHROMBIN TIME 15.1 SECONDS (11.8-14.0)
[2019-10-24 15:16] LABS: ALBUMIN 3.7 GM/DL (3.2-5.2); BILIRUBIN,TOTAL 1.5 MG/DL (0.2-1.0); CALCIUM LEVEL 9.3 MG/DL (8.8-10.2); CHOLESTEROL RISK RATIO 1.782 (<5); GLOMERULAR FILTRATION RATE 58.2 (>39); POTASSIUM SERUM 4.1 MEQ/L (3.5-5.1); THYROID STIMULATING HORMONE 1.54 uIU/ML (0.358-3.740); TOTAL PROTEIN 7.2 GM/DL (6.4-8.2)
[2019-10-24 16:02] LABS: HEMOGLOBIN A1c 7.6 %
== END ==
LOC: M LAB 13:39
PROVIDERS: ATTEND Family Medicine
DX: Z01.818 Encounter for other preprocedural examination (principal); I10 Essential (primary) hypertension

== ENCOUNTER → 2019-11-20 | Outpatient (CLI) | payer BC, MEDICARE ==
[~2019-11-20] MED LIST changes: -ALPR0.5T3 PO; -AMLO1TAB24 PO; -AMLO1TAB25 PO; +AMLO5TAB6 PO; +GLYB5TA PO; -GLYB5TAB6 PO; -ROPI1TAB3 PO
== END ==
LOC: M LABSMTC 09:59
PROVIDERS: ATTEND Anesthesiology
DX: Z03.818 Encounter for observation for suspected exposure to other biological agents ruled out (principal); Z11.59 Encounter for screening for other viral diseases
CPT/HCPCS: 87486; 87581; 87633; 87798; C9803

== ENCOUNTER 2019-11-22 08:33 | Day surgery (SDC) | payer BC, MEDICARE ==
[~2019-11-22] VITALS: Ht 162.6 cm; Wt 68.0 kg
[~2019-11-22 08:33] MED LIST changes: +NS 1,000 ML IV ONE
[2019-11-22] MEDS ORDERED: LIDOCAINE 2% 100MG/5ML SDV (FOR ANES.) As Ordered ONE (08:38)
[2019-11-22] MEDS ORDERED: propofoL 200 MG/20 ML VIAL As Ordered ONE (08:39)
--- NOTE | 2019-11-22 10:12 | ROOR ---
Patient Name: Rama Mars Procedure Date: 11/22/2019 9:46 AM Date of : 1950 Age: 69 Room: [facility] Gender: Female Note Status: Finalized Procedure: Colonoscopy Indications: Lower abdominal pain Providers: DO Jonathan Parrish MD: REJI SOUSA MD Requesting Provider: Medicines: Propofol per Anesthesia Complications: No immediate complications. Procedure: Pre-Anesthesia Assessment: - Prior to the procedure, a History and Physical was performed, and patient medications and allergies were reviewed. The patient is competent. The risks and benefits of the procedure and the sedation options and risks were discussed with the patient. All questions were answered and informed consent was obtained. Patient identification and proposed procedure were verified by the physician, the nurse, the anesthesiologist and the social service technician in the endoscopy suite. Mental Status Examination: alert and oriented. Airway Examination: normal oropharyngeal airway and neck mobility. Respiratory Examination: clear to auscultation. CV Examination: normal. Prophylactic Antibiotics: The patient does not require prophylactic antibiotics. Prior Anticoagulants: The patient has taken no previous anticoagulant or antiplatelet agents. ASA Grade Assessment: III - A patient with severe systemic disease. After reviewing the risks and benefits, the patient was deemed in satisfactory condition to undergo the procedure. The anesthesia plan was to use monitored anesthesia care (MAC). Immediately prior to administration of medications, the patient was re-assessed for adequacy to receive sedatives. The heart rate, respiratory rate, oxygen saturations, blood pressure, adequacy of pulmonary ventilation, and response to care were monitored throughout the procedure. The physical status of the patient was re-assessed after the procedure. The Colonoscope was introduced through the anus and advanced to the cecum, identified by appendiceal orifice and ileocecal valve. The colonoscopy was performed without difficulty. The patient tolerated the procedure well. Findings: Three hyperplastic polyps were found in the descending colon. The polyps were less than 5 mm in size. Estimated blood loss was minimal. The exam was otherwise without abnormality. Impression: - Three less than 5 mm polyps in the descending colon. - The examination was otherwise normal. - No specimens collected. Recommendation: - Patient has a contact number available for emergencies. The signs and symptoms of potential delayed complications were discussed with the patient. Return to normal activities tomorrow. Written discharge instructions were provided to the patient. - Await pathology results. - Repeat colonoscopy in 3 - 5 years for surveillance based on pathology results. - Return to my office at appointment to be scheduled. Navid Coyne DO 11/22/2019 10:12:02 AM Electronically signed by Navid Coyne DO Number of Addenda: 0 Note Initiated On: 11/22/2019 9:46 AM Estimated Blood Loss: Estimated blood loss was minimal.
[2019-11-22 10:30] VITALS: BP 151/67
== END 2019-11-22 10:45 | disposition home or self-care (01) ==
LOC: M OPP 08:33
PROVIDERS: ATTEND Surgery
DX: K63.5 Polyp of colon (principal); R10.30 Lower abdominal pain, unspecified; Z79.82 Long term (current) use of aspirin; Z79.84 Long term (current) use of oral hypoglycemic drugs; Z79.899 Other long term (current) drug therapy; Z87.891 Personal history of nicotine dependence

== ENCOUNTER 2020-04-13 16:11 | Inpatient (IN) | payer BC, MEDICARE ==
[~2020-04-13] VITALS: Ht 162.6 cm; Wt 69.1 kg
[~2020-04-13 16:11] MED LIST changes: +AMLO1TAB24 PO; -AMLO5TAB6 PO; -NS 1,000 ML IV ONE
[2020-04-13] MEDS ORDERED: NS 1,000 ML IV ONE ×2 (16:30→18:00)
[2020-04-13] MEDS ORDERED: ONDANSETRON 4MG/2ML VIAL IV ONE (16:30)
[2020-04-13 17:06] LABS: BASO % 0.7 % (0.0-1.0); EOS # 0.1 10^3/uL (0.0-0.5); EOS % 1.4 % (0.0-3.0); HEMATOCRIT 36.2 % (36.0-47.0); HEMOGLOBIN 11.7 g/dl (12.0-15.5); LYMPH # 0.9 10^3/uL (1.5-5.0); LYMPH % 15.7 % (24.0-44.0); MEAN CORPUSCULAR HGB CONC 32.3 g/dl (32.0-36.5); MEAN CORPUSCULAR VOLUME 83.6 fl (80.0-96.0); MONO # 0.3 10^3/uL (0.0-0.8); MONO % 5.8 % (0.0-5.0); NEUTROPHILS # 4.5 10^3/uL (1.5-8.5); NEUTROPHILS % 76.1 % (36.0-66.0); PLATELET COUNT, AUTOMATED 181 10^3/uL (150-450); RED BLOOD COUNT 4.33 10^6/uL (4.00-5.40); WHITE BLOOD COUNT 5.9 10^3/uL (4.0-10.0)
[2020-04-13] MEDS ORDERED: ISOVUE-370 76% 100ML VIAL As Ordered ONE (17:18)
--- NOTE | 2020-04-13 17:48 | REPVR ---
PROCEDURE INFORMATION: Exam: CT Abdomen And Pelvis With Contrast Exam date and time: 04/13/2020 5:23 PM Age: 70 years old Clinical indication: Abdominal pain; Generalized; Additional info: Abdominal pain and weight loss TECHNIQUE: Imaging protocol: Computed tomography of the abdomen and pelvis with intravenous contrast. Radiation optimization: All CT scans at this facility use at least one of these dose optimization techniques: automated exposure control; mA and/or kV adjustment per patient size (includes targeted exams where dose is matched to clinical indication); or iterative reconstruction. Contrast material: ISOVUE 370; Contrast volume: 100 ml; Contrast route: INTRAVENOUS (IV); COMPARISON: CT ABD PELVIS W/O CONTRAST 04/19/2014 8:47 AM FINDINGS: Lungs: No suspicious mass or airspace process in the visualized lung bases. Liver: Liver appears normal with no focal abnormality. Gallbladder and bile ducts: Gallbladder is surgically absent. Prominent central bile ducts, likely postcholecystectomy capacitance effect. Pancreas: Pancreas appears normal. No focal mass or peripancreatic inflammation. . Spleen: Spleen demonstrates a subcapsular low-density collection medially measuring 3.1 x 4.3 x 0.7 cm. No evidence of an acute splenic injury. Adrenal glands: Adrenal glands are normal in appearance. . Kidneys and ureters: Kidneys demonstrate bilateral simple fluid density cysts measuring up to 2.8 cm. There is an indeterminate density anterior lower pole right renal lesion on image 63 axial measuring 7 mm and indeterminate density left renal lesion posteriorly on image 63 measuring 13 mm. Stomach and bowel: No concerning asymmetry or abnormality at the GE junction. Stomach is distended with ingested material and fluid. No evidence of small bowel obstruction. Circumferential mural edema in the ascending colon is present without obstruction, concerning for a mass. No evidence of acute diverticulitis. Appendix: Normal caliber appendix is identified, with no adjacent inflammation. Intraperitoneal space: No pneumoperitoneum. Vasculature: Atherosclerotic calcifications in the coronary vessels. Atherosclerotic change present in the aorta, without aneurysm. Main portal and splenic veins enhance normally. Lymph nodes: No enlarged lymph nodes. Urinary bladder: Urinary bladder appears normal. Reproductive: Female reproductive organs appear unremarkable. Bones/joints: Bony structures are normal except for lumbar spine degenerative disc changes. Soft tissues: Unremarkable. IMPRESSION: 1. Circumferential mural edema involving the proximal ascending colon concerning for a nonobstructing neoplasm. 2. Indeterminate density lower pole left renal lesion and indeterminate density anterior lower pole right renal lesion. Measurements are given above. Consider outpatient sonography to determine if these are simply proteinaceous cysts. 3. Low-density subcapsular fluid collection, medial spleen 3.1 x 4.3 x 0.7 cm. Doubtful acute significance COMMENTS: Consistent with the [employer]'s Incidental Findings Committee white paper (J Am Jania Radiol 2018): Any incidental renal lesion less than 1 cm or classified as too small to characterize, or any incidental cystic renal lesion characterized as simple-appearing, is likely benign. No follow-up imaging is recommended for these lesions per consensus recommendations based on imaging criteria. Electronically signed by: Good Schmidt On 04/13/2020 17:48:52 PM
[2020-04-13] MEDS: HumaLOG INSULIN (NovoLOG) PER UNIT SC SCH (18:00)
[2020-04-13 18:10] LABS: ALBUMIN 3.8 GM/DL (3.2-5.2); ALT/SGPT 21 U/L (12-78); BILIRUBIN,DIRECT 0.2 MG/DL (0.0-0.2); BILIRUBIN,TOTAL 0.7 MG/DL (0.2-1.0); CK-MB VALUE MASS 1.8 NG/ML (<3.6); CPK CREATINE PHOSPHOKINASE 122 U/L (26-192); LIPASE 87 U/L (73-393); MB/CK RELATIVE INDEX 1.48 (< OR =4); TROPONIN I < 0.02 NG/ML (< 0.10)
[2020-04-13] MEDS ORDERED: AMLO1TAB25 PO (18:54)
[2020-04-13] MEDS ORDERED: CARV25TA PO (18:54)
[2020-04-13] MEDS ORDERED: ALPR0.5T3 PO (18:54)
[2020-04-13] MEDS ORDERED: ROPI1TAB3 PO ×2 (18:54)
[2020-04-13] MEDS ORDERED: NS 1,000 ML IV SCH (19:33)
--- NOTE | 2020-04-13 19:43 | HPEPDOC ---
[facility] Medical History & Physical Date of Admission Apr 13, 2020 Date of Service: Apr 13, 2020 Primary Care Physician: Sivakumar Kelley Attending Physician: VETO OSORIO MD History and Physical TIME OF SERVICE: 8:30 PM CHIEF COMPLAINT: Abdominal pain HISTORY OF PRESENT ILLNESS: This 70-year-old female has been having abdominal pain and diarrhea since May of last year after she had a lap jose. She was started on medications for the diarrhea which she feels helped a bit . In November she a c-scope with resection of a colon polyp. On Wednesday she developed nausea non-bloody emesis. On Wednesday she noticed that her appetite was poor, she had cramping lower abdomi nal pain, and fecal urgency that did not improve despite taking "the powder" she was given for diarrhea. Her diarrhea has been so bad that she has occasionally has occasionally woken up and found her clothes soiled with stool. This evening her co-workers found her slumped over but she was not unconscious. She has lost a bit of weight over the last week, but can't quantify the amount and reports fe eling cold all of the time; she denies having fevers or chills. REVIEW OF SYSTEMS: 12 point review of systems negative except as listed in HPI PAST MEDICAL/ SURGICAL HISTORY: NIDDM A fib (Xarelto discontinued bc of hematuria) Chronic HTN Moderate Pulm HTN Moderate aortic valve sclerosis DLP CAROL 6cm H20 Hx of cardiac ablation (per pt bc of "arrhythmia") Cataract surgery Cholecystectomy Cataract Surgery Partial toe amputation of 2 toes C-scope w polypectomy SOCIAL HISTORY: Former smoker Rarely drinks alcohol FAMILY HISTORY: Sister- pacemaker Father - lung cancer ALLERGIES: Please see below. HOME MEDICATIONS: Please see below. PHYSICAL EXAMINATION: Vital Signs Date Time Temp Pulse Resp B/P (MAP) Pulse Ox O2 Delivery O2 Flow Rate FiO2 04/13/20 16:22 97.6 85 16 135/66 100 Room Air GEN: well-nourished / well developed/ NAD INTEGUMENT: not flushed/ not jaundice HEENT: lips acyanotic /mucus membranes moist and pink / sclera anicteric CVS: RRR/NMRG/ radial pulses intact / no lower extremity edema LUNGS: able to speak full sentences without stopping to take a breath / no c oughing / lungs are clear to auscultation bilaterally on room air ABDOMEN: Contour (flat) / there are no masses / abdomen soft tender with palpation of the mid and right lower quadrant MSK/EXTREMITIES: NCAT / range of motion intact in all 4 extremities NEURO: CN 2-12 are grossly intact / speech is not dysarthric PSYCH: alert and oriented to person place and time/ able to understand and follow all commands LABORATORY DATA: 04/13/20 16:51 04/13/20 16:50: Total Bilirubin 0.7, Direct Bilirubin 0.2, Aspartate Amino Transf (AST/SGOT) 17, Alanine Aminotransferase (ALT/SGPT) 21, Alkaline Phosphatase 87, Total Creatine Kinase 122, Creatine Kinase MB 1.8, Creatine Kinase MB Relative Index 1.48, Troponin I < 0.02, Total Protein 8.0, Albumin 3.8, Albumin/Globulin Ratio 0.9L, Lipase 87 04/13/20 16:51: Immature Granulocyte % (Auto) 0.3, Neutrophils (%) (Auto) 76.1H, Lymphocytes (%) (Auto) 15.7L, Monocytes (%) (Auto) 5.8H, Eosinophils (%) (Auto) 1.4, Basophils (%) (Auto) 0.7, Neutrophils # (Auto) 4.5, Lymphocytes # (Auto) 0.9L, Monocytes # (Auto) 0.3, Eosinophils # (Auto) 0.1, Basophils # (Auto) 0.0, Nucleated Red Blood Cells % (auto) 0.0, Lactic Acid Level 2.4*H 04/13/20 16:59: POC Glucose (Misc Panel) 230H, POC Sodium (Misc Panel) 140, POC Potassium (Misc Panel) 3.9, POC Chloride (Misc Panel) 102, POC Total CO2 (Misc Panel) 23.0, POC Blood Urea Nitrogen (Misc Panel 21, POC Ionized Calcium (Misc Panel) 5.0, POC Creatinine (Misc Panel) 1.0, POC Hematocrit (Misc Panel) 33.0L IMAGING: CT abd/pelvis "1. Circumferential mural edema involving the proximal ascending colon concerning for a nonobstructing neoplasm. 2. Indeterminate density lower pole left renal lesion and indeterminate density anterior lower pole right renal lesion. Measurements are given above. Consider outpatient sonography to determine if these are simply proteinaceous cysts. 3. Low-density subcapsular fluid collection, medial spleen 3.1 x 4.3 x 0.7 cm. Doubtful acute significance MICROBIOLOGY: Please see below. ASSESSMENT: is a 70 yr old w a hx of NIDDM, A fib, HTN, Pulm HTN, lap jose and recent polypectomy who has been having worsening n/v/d and abdominal pain and was found slumped over at work this evening. She will be admitted for evaluation of vomiting, diarrhea, abdominal pain and pre-syncope. PLAN: 1. Nausea, vomiting, diarrhea Cause unclear Plan: admit to medical floor / f/u GI panel / Zofran, IVF / advance diet as tolerated / c/w cholestyramine 2. Abdominal pain Plan: morphine for pain / f/u GI panel 3. Presyncope Possibly 2/2 abdominal pain or orthostasis EKG showed afib Trop wnl Plan: telemetry / IVF / check orthostas 4. Edema of the ascending colon Possibly due to malignancy Plan: f/u w 5. Lactic acidosis Likely 2/2 dehydration She doesn't have SIRS Plan: IVF 6. Left renal lesion Plan: f/u w PCP for US on an out pt basis 7. Fluid collection at the spleen Plan: the day time team may consider additional imaging if warranted 8. NIDDM Plan: f/u accuchecks & A1C / hypoglycemia protocol / sliding scale insulin / hold oral anti-glycemics 9. A fib Xarelto discontinued bc of hematuria Plan: Coreg 10. Chronic HTN Plan: amlodipine, Coreg, spironolactone 11.Moderate Pulm HTN She mentioned that she had CHF but her EF was not low on her most recent Echo in [facility] Plan: monitor Is and Os 12.DLP Plan: atorvastatin 13.CAROL Plan: own CPAP DVT PROPHYLAXIS: SCDs DISPOSITION: home after more than 2 midnight's stay Home Medications Scheduled Alprazolam (Alprazolam) 0.5 Mg Tablet, 0.5 MG PO BID Amlodipine Besylate (Amlodipine Besylate) 10 Mg Tablet, 10 MG PO DAILY Aspirin (Aspirin) 325 Mg Tablet, 325 MG PO DAILY Atorvastatin Calcium (Atorvastatin Calcium) 40 Mg Tab, 40 MG PO DAILY Carvedilol (Carvedilol) 25 Mg Tablet, 25 MG PO BID Cholestyramine (Cholestyramine Packet) 4 Gm Powd.pack, 1 PKT PO DAILY Cranberry (Cranberry) 400 Mg Capsule, 800 MG PO DAILY Ferrous Gluconate (Iron) 236 Mg Tablet, 27 MG PO DAILY Glyburide (Glyburide) 5 Mg Tab, 5 MG PO DAILY Magnesium Oxide (Magnesium) 400 Mg Cap, 800 MG PO BID Metformin HCl (Metformin HCl) 500 Mg Tab, 500 MG PO BID [place]-3 Fatty Acids/Fish Oil (Fish Oil 1,000 mg Capsule) 1 Each Capsule, 2,000 MG PO DAILY Omeprazole (Omeprazole) 20 Mg Capsule.dr, 20 MG PO BID Spironolactone (Spironolactone) 25 Mg Tab, 25 MG PO DAILY Vitamin D3/Folic Acid (Noxifol-D3 2,500 Unit-1 mg Tab) 2,500 Unit Tablet, 1 TAB PO DAILY Scheduled PRN Ropinirole HCl (Ropinirole HCl) 1 Mg Tablet, 1 MG PO BID PRN for CRAMPS Allergies Coded Allergies: No Known Allergies (Unverified , 11/15/19) A-FIB/CHADSVASC A-FIB History Current/History of A-Fib/PAF?: Yes Current PO Anticoag Therapy: No Treatment Other anticoagulant ordered: hx of hematuria while on AC VETO OSORIO MD Apr 13, 2020 19:43
[2020-04-13] MEDS ORDERED: MOM 30ML SUSPENSION UDC PO PRN (19:45)
[2020-04-13] MEDS ORDERED: DEXTROSE 50% 50 ML SYRINGE IV PRN (19:45)
[2020-04-13] MEDS ORDERED: MORPHINE 2 MG/ML 1ML VIAL (J2270) IV PRN (19:45)
[2020-04-13] MEDS ORDERED: GLUCOSE 4GM CHEW TABLET PO PRN (19:45)
[2020-04-13] MEDS ORDERED: GLUCAGON INJ 1MG VIAL SC PRN (19:45)
[2020-04-13] MEDS ORDERED: ACETAMINOPHEN TAB 650MG DOSE (2X325MG) PO PRN (19:45)
[2020-04-13] MEDS ORDERED: MAALOX 30 ML SUSP *UDC PO PRN (19:45)
[2020-04-13] MEDS ORDERED: ONDANSETRON 4MG/2ML VIAL IV PRN (21:00)
--- NOTE | 2020-04-13 22:12 | ECGEPIP ---
[facility] - ED Test Date: 2020-04-13 Pat Name: JUAN SHELDON Department: Room: - Gender: Female Vocational Guidance Counselor: jorge : 1950 Requested By: Erickson Robb Order Number: [id number] Reading MD: Nirmal Moore Measurements Intervals [place] Rate: 72 P: [place]: 0 QRS: 43 QRSD: 101 T: -3 QT: 395 QTc: 433 Interpretive Statements ATRIAL FIBRILLATION NONSPECIFIC ST & T-WAVE ABNORMALITY SIMILAR TO 05/16/19 Electronically Signed on 04-13-2020 22:12:17 EDT by Nirmal Moore
[2020-04-13 22:29] VITALS: BP 126/72
[2020-04-13] MEDS ORDERED: rOPINIRole 1MG TAB PO PRN (23:00)
[2020-04-14] MEDS: OMEPRAZOLE 20 MG CAP PO SCH ×3 (01:04→20:47)
[2020-04-14] MEDS: CARVedilol 12.5 MG TAB PO SCH ×2 (01:11→08:39)
[2020-04-14 02:00] VITALS: BP_SYST 102; BP_SYST 110; BP_SYST 132; BP_DIAS 68; BP_DIAS 70; BP_DIAS 76
[2020-04-14 05:54] LABS: HEMATOCRIT 30.6 % (36.0-47.0); MEAN CORPUSCULAR HEMOGLOBIN 27.3 pg (27.0-33.0); MEAN CORPUSCULAR HGB CONC 32.7 g/dl (32.0-36.5); MEAN CORPUSCULAR VOLUME 83.6 fl (80.0-96.0); PLATELET COUNT, AUTOMATED 146 10^3/uL (150-450); RED BLOOD COUNT 3.66 10^6/uL (4.00-5.40); WHITE BLOOD COUNT 5.6 10^3/uL (4.0-10.0)
[2020-04-14 06:00] VITALS: BP_SYST 131; BP_SYST 133; BP_SYST 160; BP_SYST 165; BP_DIAS 58; BP_DIAS 59; BP_DIAS 66; BP_DIAS 68
[2020-04-14] MEDS: HumaLOG INSULIN (NovoLOG) PER UNIT SC SCH ×5 (06:00→23:55)
[2020-04-14 06:15] LABS: BLOOD UREA NITROGEN 10 MG/DL (7-18); CALCIUM LEVEL 8.2 MG/DL (8.8-10.2); CARBON DIOXIDE LEVEL 26 MEQ/L (21-32); CHLORIDE LEVEL 109 MEQ/L (98-107); CREATININE FOR GFR 0.71 MG/DL (0.55-1.30); GLOMERULAR FILTRATION RATE > 60.0 (>39); GLUCOSE, FASTING 176 MG/DL (70-100); POTASSIUM SERUM 3.3 MEQ/L (3.5-5.1); SODIUM LEVEL 141 MEQ/L (136-145)
[2020-04-14] MEDS ORDERED: POTASSIUM CHLORIDE 10 MEQ SR TABLET PO ONE (07:30)
[2020-04-14] MEDS: ASPIRIN 325 MG TAB PO SCH (08:38)
[2020-04-14] MEDS: amLODIPine 10 MG TAB PO SCH (08:38)
[2020-04-14] MEDS: ALPRAZolam 0.5 MG TAB PO SCH ×2 (08:39→20:47)
[2020-04-14] MEDS: SPIRONOLACTONE 25 MG TAB PO SCH (08:39)
[2020-04-14] MEDS: ATORVASTATIN 20 MG TAB PO SCH (08:39)
[2020-04-14] MEDS: CHOLESTYRAMINE 4 GM PWD PKT PO SCH (08:40)
--- NOTE | 2020-04-14 09:35 | ECGEPIP ---
[facility] Test Date: 2020-04-14 Pat Name: JUAN SHELDON Department: Room: [place] [address] Gender: Female Branch Associate: RF : 1950 Requested By: JUAN Driver Order Number: [id number] Reading MD: Ralph Rodas Measurements Intervals [place] Rate: 75 P: [place]: 0 QRS: 43 QRSD: 108 T: 41 QT: 414 QTc: 463 Interpretive Statements Atrial fibrillation with controlled ventricular response. Low limb lead voltages; body habitus versus pulmonary disease Nonspecific ST/T wave abnormalities No change from 04/13/20 Electronically Signed on 04-14-2020 9:34:51 EST by Ralph Rodas
[2020-04-14 10:00] VITALS: BP_SYST 128; BP_SYST 133; BP_SYST 134; BP_DIAS 61; BP_DIAS 64; BP_DIAS 66
[2020-04-14 14:00] VITALS: BP_SYST 142; BP_SYST 143; BP_SYST 148; BP_DIAS 61; BP_DIAS 62
[2020-04-14 18:00] VITALS: BP 148/63
[2020-04-14 18:29] LABS: BLOOD UREA NITROGEN 8 MG/DL (7-18); CALCIUM LEVEL 8.3 MG/DL (8.8-10.2); CARBON DIOXIDE LEVEL 28 MEQ/L (21-32); CHLORIDE LEVEL 110 MEQ/L (98-107); CREATININE FOR GFR 0.75 MG/DL (0.55-1.30); GLOMERULAR FILTRATION RATE > 60.0 (>39); GLUCOSE, FASTING 147 MG/DL (70-100); MAGNESIUM LEVEL 1.3 MG/DL (1.8-2.4); POTASSIUM SERUM 4.1 MEQ/L (3.5-5.1); SODIUM LEVEL 142 MEQ/L (136-145)
--- NOTE | 2020-04-14 18:39 | IPNPDOC ---
Subjective Date Seen The patient was seen on 04/14/20. Subjective Chief Complaint/HPI Ms. Mars is a 70 year old female with afib s/p ablation in 2003 here with abdominal pain and diarrhea since May of 2019. This morning, denies any fever, chest pain, or dyspnea. She does have lightheadedness with sitting up and is orthostatic positive. This morning, she was having multiple 3 second pauses. Spoke with her candy butcher, Dr. Rodas, who recommended stopping the Coreg today and decreasing the dose tomorrow. Objective Physical Examination General Exam: Positive: Alert, Cooperative Eye Exam: Positive: EOMI; Negative: Sclera icteric ENT Exam: Positive: Atraumatic Neck Exam: Positive: Supple Chest Exam: Positive: Clear to auscultation Heart Exam: Positive: Rate Normal, Regular Rhythm Abdomen Exam: Positive: Normal bowel sounds, Soft, Tenderness (mid to right lower quadrant) Extremity Exam: Negative: Cyanosis Neuro Exam: Positive: Cranial Nerves 3-12 NL Psych Exam: Positive: Mental status NL, Mood NL Assessment /Plan Assessment Ms. Mars is a 70 year old female here with abdominal pain and diarrhea. Imaging demonstrated edema of the ascending colon, but there is concern for malignancy. Dr. Joseph was consulted. Recommendations appreciated. Otherwise, patient does demonstrate orthostatic hypotension and frequent 3 second asympto matic pauses. She did have an ablation in 2003. Spoke with Dr. Rodas who recommended stopping the Coreg dose for today and starting a reduced dose tomorrow. Plan/VTE VTE Prophylaxis Ordered?: Yes Plan 1. Abdominal pain -She had N/V/D -Zofran, IVF, cholestyramine, and advance diet as tolerated -Pending GI panel -General surgery, Dr. Joseph was consulted. Recommendations appreciated. 2. Presyncope -Orthostatic vitals positive, has supine hypertension -Lightheadedness with sitting up -Spoke with cardiology, reduced the Coreg dose 3. Pauses -Tele demonstrated frequent 3 second pauses, but patient asymptomatic -Spoke with cardiology who recommended reducing Coreg dosage 4. Atrial fibrillation s/p ablation in 2003 -Cardiology recommends continuing Coreg -Not on AC due to hematuria 5. Hypertension -Continue amlodipine 6. Dyslipidemia -Atorvastatin 7. DM -Insulin sliding scale 8. DVT ppx -SCD/TEDs VS, I&O, 24H, Fishbone Vital Signs/I&O Vital Signs Date Time Temp Pulse Resp B/P (MAP) Pulse Ox O2 Delivery O2 Flow Rate FiO2 04/14/20 18:00 99.3 56 18 148/63 (91) 98 Room Air I&O- Last 24 Hours up to 6 AM 04/14/20 06:00 Intake Total 2520 ml Output Total 1200 ml Balance 1320 ml Laboratory Data 24H LABS Laboratory Tests 2 04/13/20 21:26: Lactic Acid Followup at 4 Hours 2.2*H 04/13/20 22:20: Bedside Glucose (Misc Panel) 103 04/14/20 00:53: Bedside Glucose (Misc Panel) 68L 04/14/20 02:38: Urine Color STRAW, Urine Appearance CLEAR, Urine pH 5.0, Urine Specific [place] 1.015, Urine Protein NEGATIVE, Urine Glucose (UA) NEGATIVE, Urine Ketones NEGATIVE, Urine Blood NEGATIVE, Urine Nitrite NEGATIVE, Urine Bilirubin NEGATIVE, Urine Urobilinogen 0.2, Urine Leukocyte Esterase NEGATIVE, Urine WBC (Auto) 0, Urine RBC (Auto) 0, Urine Hyaline Casts (Auto) 0, Urine Bacteria (Auto) 1+H, Urine Squamous Epithelial Cells 0, Urine Transitional Epithelial Cells <1, Urine Mucus (Auto) SMALL, Urine Sperm (Auto) 04/14/20 02:40: Bedside Glucose (Misc Panel) 79L 04/14/20 03:59: Bedside Glucose (Misc Panel) 179H 04/14/20 05:37: Nucleated Red Blood Cells % (auto) 0.0, Anion Gap 6L, Glomerular Filtration Rate > 60.0, Calcium Level 8.2L 04/14/20 07:50: Lactic Acid Level 1.7 04/14/20 12:17: Bedside Glucose (Misc Panel) 112H 04/14/20 16:55: Bedside Glucose (Misc Panel) 159H 04/14/20 17:27: CBC/BMP Laboratory Tests 04/14/20 05:37 Microbiology Microbiology 04/14/20 Gastrointestinal Tract Panel (PCR), Received Pending 04/13/20 Blood Culture - Preliminary, Resulted No growth after 24 hours . All specim... 04/13/20 Blood Culture - Preliminary, Resulted No growth after 24 hours . All specim... JUAN BOWER DO Apr 14, 2020 18:39
[2020-04-14 22:00] VITALS: BP 144/62
[2020-04-15] VITALS (7 sets, daily range): BP systolic 120–153; BP diastolic 50–78
[2020-04-15] MEDS: HumaLOG INSULIN (NovoLOG) PER UNIT SC SCH ×3 (06:00→17:28)
[2020-04-15 06:30] LABS: HEMATOCRIT 36.5 % (36.0-47.0); HEMOGLOBIN 11.7 g/dl (12.0-15.5); MEAN CORPUSCULAR HEMOGLOBIN 26.8 pg (27.0-33.0); MEAN CORPUSCULAR HGB CONC 32.1 g/dl (32.0-36.5); MEAN CORPUSCULAR VOLUME 83.7 fl (80.0-96.0); PLATELET COUNT, AUTOMATED 158 10^3/uL (150-450); RED BLOOD COUNT 4.36 10^6/uL (4.00-5.40); WHITE BLOOD COUNT 5.4 10^3/uL (4.0-10.0)
[2020-04-15 06:48] LABS: BLOOD UREA NITROGEN 7 MG/DL (7-18); CALCIUM LEVEL 9.1 MG/DL (8.8-10.2); CARBON DIOXIDE LEVEL 28 MEQ/L (21-32); CHLORIDE LEVEL 108 MEQ/L (98-107); CREATININE FOR GFR 0.69 MG/DL (0.55-1.30); GLOMERULAR FILTRATION RATE > 60.0 (>39); GLUCOSE, FASTING 87 MG/DL (70-100); POTASSIUM SERUM 3.7 MEQ/L (3.5-5.1); SODIUM LEVEL 142 MEQ/L (136-145)
[2020-04-15] MEDS: ALPRAZolam 0.5 MG TAB PO SCH ×2 (09:28→21:29)
[2020-04-15] MEDS: SPIRONOLACTONE 25 MG TAB PO SCH (09:28)
[2020-04-15] MEDS: OMEPRAZOLE 20 MG CAP PO SCH ×2 (09:28→21:29)
[2020-04-15] MEDS: CHOLESTYRAMINE 4 GM PWD PKT PO SCH (09:28)
[2020-04-15] MEDS: ASPIRIN 325 MG TAB PO SCH (09:28)
[2020-04-15] MEDS: ATORVASTATIN 20 MG TAB PO SCH (09:29)
[2020-04-15] MEDS: MAG SULF 1GM/100ML (MAG RUN) 1 GM in IV 1 EA IV SCH ×4 (09:31→14:26)
[2020-04-15] MEDS: CARVedilol 12.5 MG TAB PO SCH ×2 (10:12→21:29)
[2020-04-15] MEDS: amLODIPine 10 MG TAB PO SCH (10:12)
--- NOTE | 2020-04-15 10:48 | CR ---
DATE OF CONSULTATION: 04/14/2020 REASON FOR CONSULTATION: Abdominal pain and diarrhea with abnormal CT of the large intestine. HISTORY OF PRESENT ILLNESS: The patient is a 70-year-old woman who was admitted by the hospitalist on the evening of the 13 of April. The patient had presented to the emergency department wit a report of some abdominal pain over the last week or so. The patient reports that she has been having diarrhea since she underwent cholecystectomy in May of 2019. She was started on some cholestyramine, which she reports did help some. She has been having occasional crampy episodes. Over the last week, she has been feeling just ill overall with malaise. She has not had definite fevers or chills but has had some intermittent abdominal cramping. She works in [employer] at [employer] and had reported to work on the but was directed to the emergency department by her coworkers. She reports she has lost some weight. In the emergency department, she underwent evaluation with some laboratory studies which revealed a normal white count of 6 with a differential showing 76% neutrophils, 16% lymphocytes and 6% monocytes. She had chemistries that were normal other than a non-fasting glucose of 230 at the time of admission. A CT scan of the abdomen and pelvis was obtained and this was interpreted by the radiologist as showing some circumferential mural edema in the ascending colon without evidence of obstruction, which he felt was concerning for a mass. The report indicates this was felt to be concerning for a non-obstructing neoplasm. There was a small, low-density fluid collection adjacent to the medial spleen. There was a small indeterminate density in the left kidney and also in the right kidney. Followup sonography was recommended. I am now asked to evaluate the patient regarding the abnormality of the colon. ALLERGIES: The patient has no reported drug allergies. MEDICATIONS PRIOR TO ADMISSION: - Alprazolam 0.5 mg twice daily - Amlodipine 10 mg p.o. daily - Aspirin 325 mg daily - Atorvastatin 40 mg p.o. daily - Carvedilol 25 mg p.o. twice daily - Cholestyramine 4 gram packet once daily - Cranberry capsules 800 mg p.o. daily - Ferrous gluconate 236 mg tablets one daily - Glyburide 5 mg p.o. daily - Magnesium oxide 800 mg p.o. twice daily - Metformin 500 mg p.o. twice daily - [place] 3 fatty acids/fish oil one capsule daily - Omeprazole 20 mg p.o. twice daily - Ropinirole 1 mg p.o. twice daily as needed for cramps - Spironolactone 25 mg p.o. daily - Vitamin B3/folic acid one tablet daily SURGICAL HISTORY: Significant for her laparoscopic cholecystectomy in May of 2019. She has had cataract surgery. She had a partial amputation of two toes because of infections. She has had a history of a cardiac ablation due to an arrhythmia. She had a colonoscopy in November [address] Coyne. MEDICAL HISTORY: The patient has a history of atrial fibrillation and had been on Xarelto, which was stopped because of hematuria. She has chronic hypertension. She reportedly has moderate pulmonary hypertension. She has dyslipidemia and obstructive sleep apnea. SOCIAL HISTORY: The patient is a former smoker but denies significant alcohol use. FAMILY HISTORY: Significant for lung cancer in a father. REVIEW OF SYSTEMS: Shows no history of chest pain or palpitations. She denies seizure or stroke. She has no current hematuria or dysuria. There is no significant bone or joint issues currently. She has no history of deep vein thrombosis (DVT) or pulmonary embolus. GI symptoms are as noted in the history. PHYSICAL EXAMINATION: Reveals a pleasant, older, non-obese woman. She is alert and oriented. Skin is warm and dry. Sclerae are anicteric. Mucous membranes are moist. The neck is supple. Heart examination shows an irregularly irregular rhythm. The lungs are clear. The abdomen is flat. She has bowel sounds present. Palpation reveals no discrete tenderness and the abdomen is soft throughout without appreciable mass. There is no evident hernia. Her extremities are without edema. LABORATORY DATA: From this morning show a white count of 6, hemoglobin 10, hematocrit 31 and a platelet count of 146,000. Chemistries show sodium of 141, potassium 3.3, chloride 109, CO2 of 26, BUN of 10, creatinine 0.7 and glucose of 176. Her lactic acid this morning was 1.7, which was down from 2.2 yesterday evening. She had a calcium of 8.2. Liver function tests at the time of admission on the were normal with a lipase also normal, and a troponin of less than 0.02. IMAGING DATA: I repeated her CT images from the 13 of April. The colon contains a moderate to large amount of stool. This begins in the area of the hepatic flexure and extends across the entire transverse colon. The sigmoid colon appears perhaps somewhat thickened and she clearly has diverticulosis present. There is no evident free air or fluid. The area identified by the radiologist appears to be at a point where the ascending colon is somewhat mobile and flips upwards with the cecum extending medially from the area of the ascending colon. There may be some slight thickening, although I suspect this is only related to the orientation of the images. This is effectively in the area of the ileocecal valve. The appendix is seen and appears normal. The patient underwent a colonoscopy back on the [address] Coyne. He reported noting three hyperplastic polyps in the descending colon. He reported that no specimens were taken but there is a pathology report from the 21 of November which showed fragments of colonic mucosa with focal hyperplastic crypts and no definite adenomatous change. IMPRESSION: 1. Reported CT abnormality of the ascending colon. 2. Intermittent crampy abdominal pain and diarrhea. 3. Atrial fibrillation. 4. Dyslipidemia. 5. Obstructive sleep apnea. 6. Hypertension. 7. Moderate pulmonary hypertension. 8. Diabetes mellitus. RECOMMENDATIONS: I have reviewed the CT scan of the abdomen. I can see the area that the radiologist felt represented an abnormality but I suspect that there is no abnormal thickening in this area. The patient had colonoscopy [id number] months ago and it was reported that the scope reached the cecum. I think it is extremely unlikely that the described finding in the ascending colon is of any clinical significance. The etiology of her crampy pains and diarrhea is not clear. She had no evidence of acute bacterial infection as manifest by her normal white count and differential, and no signs of acute inflammation within the abdomen. I suppose this could represent some sort of gastrointestinal viral infection. I would not recommend any further testing of the colon. I think her diet can be advanced as tolerated and when she is doing well enough, she could be discharged for outpatient followup with her primary physician. RAULITO
[2020-04-15] MEDS ORDERED: MAGNESIUM SULFATE 1GM/100ML D5W BAG (10MG/ML) As Ordered ONE (14:24)
--- NOTE | 2020-04-15 17:08 | IPNPDOC ---
Subjective Date Seen The patient was seen on 04/15/20. Subjective Chief Complaint/HPI Mrs. Mars is a 70 year old female with afib s/p ablation in 2003 here with abdominal pain and diarrhea. She tells me that these symptoms have been chronic since her cholecystectomy in 05/2019, but in the past few days prior to admission, they were worsening. 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 I recommended that she try to drink fluids while working, especially since she has been having diarrhea. Of note, she has not seen GI before in the past. Objective Physical Examination General Exam: Positive: Alert, Cooperative Eye Exam: Positive: EOMI; Negative: Sclera icteric ENT Exam: Positive: Atraumatic Neck Exam: Positive: Supple Chest Exam: Positive: Clear to auscultation Heart Exam: Positive: Rate Normal, Regular Rhythm Abdomen Exam: Positive: Normal bowel sounds, Soft, Tenderness (mid to right lower quadrant) Extremity Exam: Negative: Cyanosis Neuro Exam: Positive: Cranial Nerves 3-12 NL Psych Exam: Positive: Mental status NL, Mood NL Assessment /Plan Assessment Ms. Mars is a 70 year old female here with abdominal pain and diarrhea. Imaging demonstrated edema of the ascending colon, but there is concern for malignancy. Dr. Joseph was consulted. Recommendations appreciated. Unlikely neoplasm as she has had recent colonoscopy about 4 and a half months ago. Otherwise, today, her orthostatic vitals which have been positive, are now negative. She still has pauses, but <4 seconds. She is on a reduced dose of Coreg per cardiology recommendations. Of note, she did have an ablation in 2003. Plan/VTE VTE Prophylaxis Ordered?: Yes Plan 1. Diarrhea with N/V -She works in the ED, chronic since 05/2019, but worse a few days prior to admission -May be secondary to viral gastritis, improving now. -General surgery saw patient, unlikely neoplasm -May have post-cholecystectomy diarrhea -Continue with cholestyramine -Dietary recommends BRAT diet 2. Presyncope -Orthostatic vitals were positive the first two days, has supine hypertension -Spoke with cardiology, reduced the Coreg dose -Now orthostatic negative 3. Pauses -Tele demonstrated frequent 3 second pauses, but patient asymptomatic -Spoke with cardiology who recommended reducing Coreg dosage 4. Atrial fibrillation s/p ablation in 2003 -Cardiology recommends continuing Coreg -Not on AC due to hematuria 5. Hypertension -Continue amlodipine 6. Dyslipidemia -Atorvastatin 7. DM -Insulin sliding scale 8. DVT ppx -SCD/TEDs Dispo: Pending tolerance to BRAT diet. Will need to follow up with Cardiology outpatient. VS, I&O, 24H, Fishbone Vital Signs/I&O Vital Signs Date Time Temp Pulse Resp B/P (MAP) Pulse Ox O2 Delivery O2 Flow Rate FiO2 04/15/20 14:00 96.9 66 20 130/50 (76) 98 Room Air I&O- Last 24 Hours up to 6 AM 04/15/20 06:00 Intake Total 1960 ml Output Total 3200 ml Balance -1240 ml Laboratory Data 24H LABS Laboratory Tests 2 04/14/20 16:55: Bedside Glucose (Misc Panel) 159H 04/14/20 17:27: Anion Gap 4L, Glomerular Filtration Rate > 60.0, Calcium Level 8.3L, Magnesium Level 1.3L 04/14/20 23:40: Bedside Glucose (Misc Panel) 93 04/15/20 05:49: Anion Gap 6L, Glomerular Filtration Rate > 60.0, Calcium Level 9.1, Nucleated Red Blood Cells % (auto) 0.0 04/15/20 05:54: Bedside Glucose (Misc Panel) 86 CBC/BMP Laboratory Tests 04/14/20 17:27 04/15/20 05:49 Microbiology Microbiology 04/14/20 Gastrointestinal Tract Panel (PCR), Received Pending 04/13/20 Blood Culture - Preliminary, Resulted No growth after 24 hours . All specim... 04/13/20 Blood Culture - Preliminary, Resulted No growth after 24 hours . All specim... JUAN BOWER DO Apr 15, 2020 17:08
[2020-04-15] MEDS ORDERED: HumaLOG INSULIN (NovoLOG) PER UNIT SC SCH (21:00)
[2020-04-16 02:00] VITALS: BP 148/68
[2020-04-16 06:00] VITALS: BP 146/75
[2020-04-16 06:19] LABS: HEMATOCRIT 36.7 % (36.0-47.0); HEMOGLOBIN 12.3 g/dl (12.0-15.5); MEAN CORPUSCULAR HEMOGLOBIN 28.1 pg (27.0-33.0); MEAN CORPUSCULAR HGB CONC 33.5 g/dl (32.0-36.5); MEAN CORPUSCULAR VOLUME 83.8 fl (80.0-96.0); PLATELET COUNT, AUTOMATED 159 10^3/uL (150-450); RED BLOOD COUNT 4.38 10^6/uL (4.00-5.40); WHITE BLOOD COUNT 5.4 10^3/uL (4.0-10.0)
[2020-04-16 06:40] LABS: BLOOD UREA NITROGEN 8 MG/DL (7-18); CALCIUM LEVEL 8.9 MG/DL (8.8-10.2); CARBON DIOXIDE LEVEL 29 MEQ/L (21-32); CHLORIDE LEVEL 107 MEQ/L (98-107); CREATININE FOR GFR 0.78 MG/DL (0.55-1.30); GLOMERULAR FILTRATION RATE > 60.0 (>39); GLUCOSE, FASTING 118 MG/DL (70-100); SODIUM LEVEL 141 MEQ/L (136-145)
[2020-04-16] MEDS: HumaLOG INSULIN (NovoLOG) PER UNIT SC SCH (07:30)
[2020-04-16] MEDS: ALPRAZolam 0.5 MG TAB PO SCH (08:24)
[2020-04-16] MEDS: SPIRONOLACTONE 25 MG TAB PO SCH (08:24)
[2020-04-16] MEDS: OMEPRAZOLE 20 MG CAP PO SCH (08:24)
[2020-04-16] MEDS: ATORVASTATIN 20 MG TAB PO SCH (08:24)
[2020-04-16] MEDS: ASPIRIN 325 MG TAB PO SCH (08:24)
[2020-04-16 08:25] VITALS: BP 147/74
[2020-04-16] MEDS: amLODIPine 10 MG TAB PO SCH (08:25)
[2020-04-16] MEDS: CARVedilol 12.5 MG TAB PO SCH (08:25)
[2020-04-16] MEDS ORDERED: CARV12.5 PO (09:30)
[2020-04-16 10:00] VITALS: BP 126/62
[2020-04-16] MEDS: CHOLESTYRAMINE 4 GM PWD PKT PO SCH (10:22)
--- NOTE | 2020-04-16 18:29 | DS.PDOC ---
Discharge Summary General Date of Admission Apr 13, 2020 at 19:33 Date of Discharge Apr 16, 2020 Specialist/Consultants [facility] General Surgery, Dr. Joseph Discharge Summary PROCEDURES PERFORMED DURING STAY: None ADMITTING DIAGNOSES: 1. Gastroenteritis 2. Abdominal pain 3. Presyncope 4. Edema of the ascending colon 5. Lactic acidosis 6. Left renal lesion 7. NIDDM 8. A fib 9. 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 Gastroenteritis 2. Conduction delay (Pauses) 3. Presyncope 4. Edema of the ascending colon 5. Lactic acidosis 6. Left renal lesion 7. NIDDM 8. A fib 9. 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 HISTORY OF PRESENT ILLNESS: Mrs. Mars is a 70 year old female who had a laparo scopic cholecystectomy who is here with worsening nausea, vomiting, and diarrhea. She had a cholecystectomy in May 2019. Since then, she's been having chronic diarrhea. About 4 days prior to admission, she started to have nausea with emesis. The following day, her appetite was poor, and she was having abdominal cramping and fecal urgency. The evening of admission, her coworkers found her slumped over but not unconscious. She is also bit of weight over the last week. When they obtained a CT of abdomen and pelvis, there is concern of malignancy and general surgery was consulted. HOSPITAL COURSE: Gen. surgery looked at the imaging. They did not think that this is malignancy. This is more of an over read especially since she had a colonoscopy 4-1/2 months ago. For the gastroenteritis, she is given supportive care. Initially started on a clear liquid diet and advanced to regulars. In ad dition, she was monitored on telemetry it was noted that she had pauses. During these pauses, she is asymptomatic. Generally the pause is between 2-3 seconds. Spoke with her director of accreditation. She does have history of cardiac ablation for atrial fibrillation. They recommended cutting back on her Coreg and having patient following up with them. Today, when I saw her, she was feeling better. She had spoken with a dietitian who recommended the BRAT diet due to her cholecystectomy. She tolerated diet and was subsequently discharged. DISCHARGE MEDICATIONS: Please see below. ALLERGIES: Please see below. PHYSICAL EXAMINATION ON DISCHARGE: VITAL SIGNS: Please see below. GENERAL: Comfortable, in no apparent distress. HEENT: Head normocephalic/atraumatic, EOMI, sclera clear. NECK: Supple RESPIRATORY: Lungs clear to auscultation bilaterally, no rales, wheeze or rhonchi. CARDIOVASCULAR: Regular rate and rhythm. ABDOMEN: Soft, nontender, no guarding or rebound tenderness. Normal bowel sounds. MUSCLE SKELETAL: Muscle strength 5/5 in all extremities. NEUROLOGICAL: CN 312 grossly intact, no focal deficits noted. PSYCHOLOGICAL: Normal mood and affect LABORATORY DATA: Please see below. IMAGING: CT of abdomen and pelvis 1. Circumferential mural edema involving the proximal ascending colon concerning for a nonobstructing neoplasm. 2. Indeterminate density lower pole left renal lesion and indeterminate density anterior lower pole right renal lesion. Measurements are given above. Consider outpatient sonography to determine if these are simply proteinaceous cysts. 3. Low-density subcapsular fluid collection, medial spleen 3.1 x 4.3 x 0.7 cm. Doubtful acute significance PROGNOSIS: Stable ACTIVITY: As tolerated. DIET: BRAT diet DISCHARGE PLAN: Home DISPOSITION: , Self-Care. DISCHARGE INSTRUCTIONS: 1. Follow-up with her PCP within 5 days 2. Continue BRAT diet. 3. Discuss with your PCP about your right and left renal lesion DISCHARGE CONDITION: Stable. Total time spent on discharge planning, discharge summary, and medication reconciliation: 45 minutes. Vital Signs/I&Os Vital Signs Date Time Temp Pulse Resp B/P (MAP) Pulse Ox O2 Delivery O2 Flow Rate FiO2 04/16/20 10:00 97.9 63 16 126/62 (83) 99 Room Air I&O- Last 24 Hours up to 6 AM 04/16/20 06:00 Intake Total 1275 ml Output Total 1200 ml Balance 75 ml Laboratory Data Labs 24H Laboratory Tests 2 04/15/20 20:47: Bedside Glucose (Misc Panel) 192H 04/16/20 06:00: Nucleated Red Blood Cells % (auto) 0.0, Anion Gap 5L, Glomerular Filtration Rate > 60.0, Calcium Level 8.9 04/16/20 10:23: Methicillin-Resist S.aureus DNA PCR NOT DETECTED CBC/BMP Laboratory Tests 04/16/20 06:00 FSBS Laboratory Tests Test 04/15/20 20:47 Range/Units Bedside Glucose (Misc Panel) 192 83-110 MG/DL Microbiology Microbiology 04/14/20 Gastrointestinal Tract Panel (PCR), Received Pending 04/13/20 Blood Culture - Preliminary, Resulted No Growth after 72 hours. All specime... 04/13/20 Blood Culture - Preliminary, Resulted No Growth after 72 hours. All specime... Discharge Medications Scheduled Alprazolam (Alprazolam) 0.5 Mg Tablet, 0.5 MG PO BID, (Reported) Amlodipine Besylate (Amlodipine Besylate) 10 Mg Tablet, 10 MG PO DAILY, (Reported) Aspirin (Aspirin) 325 Mg Tablet, 325 MG PO DAILY, (Reported) Atorvastatin Calcium (Atorvastatin Calcium) 40 Mg Tab, 40 MG PO DAILY, (Reported) Carvedilol (Carvedilol) 12.5 Mg Tablet, 12.5 MG PO BID Cholestyramine (Cholestyramine Packet) 4 Gm Powd.pack, 1 PKT PO DAILY, (R eported) Cranberry (Cranberry) 400 Mg Capsule, 800 MG PO DAILY, (Reported) Ferrous Gluconate (Iron) 236 Mg Tablet, 27 MG PO DAILY, (Reported) Glyburide (Glyburide) 5 Mg Tab, 5 MG PO DAILY, (Reported) Magnesium Oxide (Magnesium) 400 Mg Cap, 800 MG PO BID, (Reported) Metformin HCl (Metformin HCl) 500 Mg Tab, 500 MG PO BID, (Reported) [place]-3 Fatty Acids/Fish Oil (Fish Oil 1,000 mg Capsule) 1 Each Capsule, 2,000 MG PO DAILY, (Reported) Omeprazole (Omeprazole) 20 Mg Capsule.dr, 20 MG PO BID, (Reported) Spironolactone (Spironolactone) 25 Mg Tab, 25 MG PO DAILY, (Reported) Vitamin D3/Folic Acid (Noxifol-D3 2,500 Unit-1 mg Tab) 2,500 Unit Tablet, 1 TAB PO DAILY, (Reported) Scheduled PRN Ropinirole HCl (Ropinirole HCl) 1 Mg Tablet, 1 MG PO BID PRN for CRAMPS, (Repor keely) Allergies Coded Allergies: No Known Allergies (Unverified , 11/15/19) JUAN BOWER DO Apr 16, 2020 18:29
== END 2020-04-16 11:10 | disposition home or self-care (01) | DRG 249 ==
LOC: M ED 16:11 → M ED INP 19:33 → ENRESERV 20:30 → M MSPAV 22:29
PROVIDERS: ADMIT Internal Medicine; ATTEND Internal Medicine
DX: K52.9 Noninfective gastroenteritis and colitis, unspecified (principal); E87.2 Acidosis; I48.91 Unspecified atrial fibrillation; I27.20 Pulmonary hypertension, unspecified; E11.9 Type 2 diabetes mellitus without complications; I10 Essential (primary) hypertension; R55 Syncope and collapse; N28.89 Other specified disorders of kidney and ureter; I35.8 Other nonrheumatic aortic valve disorders; E78.5 Hyperlipidemia, unspecified; G47.33 Obstructive sleep apnea (adult) (pediatric); R10.9 Unspecified abdominal pain; Z79.82 Long term (current) use of aspirin; Z79.84 Long term (current) use of oral hypoglycemic drugs; Z79.899 Other long term (current) drug therapy; Z98.49 Cataract extraction status, unspecified eye; Z90.49 Acquired absence of other specified parts of digestive tract; Z87.891 Personal history of nicotine dependence; Z89.429 Acquired absence of other toe(s), unspecified side

== ENCOUNTER → 2020-05-03 | Outpatient (CLI) | payer BC, MEDICARE ==
[~2020-05-03] MED LIST changes: +ALPR0.5T3 PO; +AMLO1TAB25 PO; +E-Z-GAS II EFFERVESCENT PACKET (SODIUM BICARB./CITRIC ACID/SIMETHICONE) As Ordered ONE; +E-Z-HD 98% w/w 340GM SUSP BTL As Ordered ONE; +E-Z-PAQUE 96% w/w SUSP 176GM BTL As Ordered ONE; +ROPI1TAB3 PO
--- NOTE | 2020-05-03 16:35 | REP ---
INDICATION: EPIGASTRIC PAIN, PEPTIC ULCER. COMPARISON: None TECHNIQUE: This procedure was performed by Felicity Macdonald [facility], under the direct supervision of Dr. Barnett. Images were reviewed with Dr. Barnett prior to dictation. Liquid barium and gas producing crystals were given in the erect position, as well as liquid barium in the prone oblique position in order to perform a double contrast upper GI examination. FINDINGS: The bead inspector film shows no organomegaly or pathological masses. The intestinal gas pattern is unremarkable. The oral and pharyngeal stages of deglutition were unremarkable. Esophageal transport is prompt and efficient and there is no evidence of esophagitis, stricture, or mucosal ring. There is no evidence of a hiatal hernia. Gastroesophageal reflux is visualized to the level of the thoracic inlet.. The stomach alvarenga are normally outlined. The rugal folds are smooth and regular. There is no gastritis, neoplasm, or ulcerative disease. The duodenal alvarenga are normally outlined. The mucosal folds are smooth and regular. There is no duodenitis, peptic ulcer disease or neoplasm. The visualized portion of the proximal small bowel appears normal in course and caliber. IMPRESSION: Gastroesophageal reflux to the level of the thoracic inlet. 0.5 minutes of fluoroscopy time was utilized for this procedure. Some fluoroscopic images are performed with last image hold technology. These images require no additional radiation. <Electronically signed by Felicity Macdonald > 05/03/20 1615 <Electronically signed by Navid Barnett > 05/03/20 1632
== END ==
LOC: M RAD 09:54
PROVIDERS: ATTEND Family Medicine
DX: K21.9 Gastro-esophageal reflux disease without esophagitis (principal); R10.13 Epigastric pain; K27.3 Acute peptic ulcer, site unspecified, without hemorrhage or perforation

== ENCOUNTER → 2020-06-02 | Outpatient (REF) | payer BC, MEDICARE ==
[~2020-06-02] MED LIST changes: -E-Z-GAS II EFFERVESCENT PACKET (SODIUM BICARB./CITRIC ACID/SIMETHICONE) As Ordered ONE; -E-Z-HD 98% w/w 340GM SUSP BTL As Ordered ONE; -E-Z-PAQUE 96% w/w SUSP 176GM BTL As Ordered ONE
== END ==
LOC: M LAB REF 10:24
PROVIDERS: ATTEND Internal Medicine Gastroenterology
DX: R19.7 Diarrhea, unspecified (principal)

== ENCOUNTER 2020-10-13 20:32 | Emergency (ER) | payer BC, MEDICARE ==
[~2020-10-13] VITALS: Ht 165.1 cm; Wt 65.5 kg
[~2020-10-13 20:32] MED LIST changes: -GLYB5TA PO; +GLYB5TAB6 PO
[2020-10-13] MEDS ORDERED: METOCLOPRAMIDE INJ 10MG/2ML VIAL (J2765 PER 1) IV ONE (21:15)
[2020-10-13] MEDS ORDERED: GI COCKTAIL 50ML BTL(HYOSCYAMINE/MAALOX/LIDOCAINE VISCOUS)(1:3:1) PO ONE (21:15)
[2020-10-13] MEDS ORDERED: PANTOPRAZOLE 40MG VIAL (C9113 PER 1) IV ONE (21:15)
[2020-10-13 21:21] LABS: BASO % 0.4 % (0.0-1.0); EOS # 0.2 10^3/uL (0.0-0.5); EOS % 2.1 % (0.0-3.0); HEMATOCRIT 39.3 % (36.0-47.0); HEMOGLOBIN 12.5 g/dl (12.0-15.5); LYMPH # 0.9 10^3/uL (1.5-5.0); LYMPH % 11.4 % (24.0-44.0); MEAN CORPUSCULAR HEMOGLOBIN 27.4 pg (27.0-33.0); MEAN CORPUSCULAR HGB CONC 31.8 g/dl (32.0-36.5); MEAN CORPUSCULAR VOLUME 86.2 fl (80.0-96.0); MONO # 0.3 10^3/uL (0.0-0.8); MONO % 4.2 % (2.0-8.0); NEUTROPHILS # 6.6 10^3/uL (1.5-8.5); NEUTROPHILS % 81.4 % (36.0-66.0); PLATELET COUNT, AUTOMATED 175 10^3/uL (150-450); RED BLOOD COUNT 4.56 10^6/uL (4.00-5.40); WHITE BLOOD COUNT 8.1 10^3/uL (4.0-10.0)
[2020-10-13 21:30] LABS: ALBUMIN 4.4 GM/DL (3.2-5.2); BILIRUBIN,DIRECT 0.3 MG/DL (0.0-0.2); BILIRUBIN,TOTAL 1.1 MG/DL (0.2-1.0); CALCIUM LEVEL 9.7 MG/DL (8.8-10.2); CREATININE FOR GFR 1.27 MG/DL (0.55-1.30); POTASSIUM SERUM 4.3 MEQ/L (3.5-5.1); TOTAL PROTEIN 8.7 GM/DL (6.4-8.2)
[2020-10-13] MEDS ORDERED: ISOVUE-370 76% 100ML VIAL As Ordered ONE (22:00)
--- NOTE | 2020-10-13 23:38 | REPVR ---
PROCEDURE INFORMATION: Exam: CT Abdomen And Pelvis With Contrast Exam date and time: 10/13/2020 10:32 PM Age: 70 years old Clinical indication: Abdominal pain; Generalized; Prior surgery; Surgery date: 6+ months; Additional info: Severe abdominal pain TECHNIQUE: Imaging protocol: Computed tomography of the abdomen and pelvis with contrast. Radiation optimization: All CT scans at this facility use at least one of these dose optimization techniques: automated exposure control; mA and/or kV adjustment per patient size (includes targeted exams where dose is matched to clinical indication); or iterative reconstruction. Contrast material: ISOVUE 370; Contrast volume: 100 ml; Contrast route: INTRAVENOUS (IV); COMPARISON: CT ABD/PEL W/IV CONTRAST ONLY 04/13/2020 5:14 PM FINDINGS: Lungs: Clear appearing lung bases Heart: The heart is normal in size and there is no pericardial effusion. Liver: There is an area of calcification right lobe of the liver. There is enhancement throughout the liver. Gallbladder and bile ducts: The common bile duct is enlarged at 1.2 cm and this may be ectasias secondary to the patient being post cholecystectomy. Pancreas: Normal size pancreas. Spleen: Normal spleen. Adrenal glands: In mild enlargement of the left adrenal gland. Kidneys and ureters: There is enhancement of both kidneys. Stomach and bowel: There is a large amount of stool throughout the colon and severe constipation. The cecum is in the right lower quadrant and there is no evidence of inflammation. There are small cysts of the left kidney. There is mild gaseous distension of loops of small bowel in the upper abdomen probably the result of ileus. Intraperitoneal space: Unremarkable. No free air. No significant fluid collection. Vasculature: There is opacification of the SMV and the SMA. 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 There is opacification of the distal SMA and branches. There is severe atherosclerotic change in calcification of the aorta. Lymph nodes: There is no evidence of lymphadenopathy. Urinary bladder: Normal urinary bladder. Reproductive: Unremarkable as visualized. Bones/joints: There is moderate scoliosis of the lumbar spine. Soft tissues: Unremarkable. IMPRESSION: Very severe atherosclerotic change throughout the aorta. There is occlusion of the proximal aspect of the SMA but opacification of the distal aspect and branches. There is mild gaseous distension of loops of bowel with air-fluid levels probably the result of ileus There is severe constipation. Electronically signed by: Leon Joshua On 10/13/2020 23:37:51 PM
[2020-10-14] MEDS ORDERED: MAGNESIUM CITRATE 300 ML BTL PO ONE (00:05)
[2020-10-14 00:53] VITALS: BP 151/89
--- NOTE | 2020-10-14 06:43 | ED PDOC ---
Post-Departure Follow-Up dr velarde faxed formal report of ct abd/p for fu Erickson Ghotra MD October 14, 2020 06:43
== END 2020-10-14 01:15 | disposition home or self-care (01) ==
LOC: M ED 20:32
DX: K59.00 Constipation, unspecified (principal); I48.91 Unspecified atrial fibrillation; I50.9 Heart failure, unspecified; I10 Essential (primary) hypertension; I70.0 Atherosclerosis of aorta; Z79.82 Long term (current) use of aspirin; Z79.899 Other long term (current) drug therapy
CPT/HCPCS: 74177; 80048; 80076; 83690; 85025; 93041; 96374; 96375; 99285; C9113; J2765; Q9967

== ENCOUNTER → 2020-12-24 | Outpatient (CLI) | payer BC, MEDICARE ==
[~2020-12-24] MED LIST changes: +OMEP-173 PO; -OMEP-218 PO
[2020-12-24 13:56] LABS: ALBUMIN 3.9 GM/DL (3.2-5.2); ALT/SGPT 23 U/L (12-78); BILIRUBIN,TOTAL 1.2 MG/DL (0.2-1.0); BLOOD UREA NITROGEN 19 MG/DL (7-18); CALCIUM LEVEL 9.5 MG/DL (8.8-10.2); CARBON DIOXIDE LEVEL 27 MEQ/L (21-32); CHLORIDE LEVEL 106 MEQ/L (98-107); CHOLESTEROL LEVEL 113 MG/DL (<200); CHOLESTEROL RISK RATIO 2.017 (<5); CREATININE FOR GFR 0.75 MG/DL (0.55-1.30); GLOMERULAR FILTRATION RATE > 60.0 (>39); GLUCOSE, FASTING 102 MG/DL (70-100); HDL CHOLESTEROL 56 MG/DL (>40); LDL CHOLESTEROL 39 MG/DL (<100); NON-HDL-C 57 MG/DL; SODIUM LEVEL 141 MEQ/L (136-145); TOTAL PROTEIN 7.8 GM/DL (6.4-8.2); TRIGLYCERIDES LEVEL 92 MG/DL (<150)
== END ==
LOC: M LAB 11:44
PROVIDERS: ATTEND Family Medicine
DX: E78.00 Pure hypercholesterolemia, unspecified (principal)

== ENCOUNTER → 2020-12-24 | Outpatient (CLI) | payer BC, MEDICARE | LOC: M LAB 11:39 | PROVIDERS: ATTEND Family Medicine | DX: F41.1 Generalized anxiety disorder (principal) ==

== ENCOUNTER → 2021-03-14 | Outpatient (CLI) | payer BC, MEDICARE ==
[~2021-03-14] MED LIST changes: -OMEP-173 PO; +OMEP-218 PO
[2021-03-14 12:11] LABS: HEMATOCRIT 40.5 % (36.0-47.0); HEMOGLOBIN 13.6 g/dl (12.0-15.5); MEAN CORPUSCULAR HEMOGLOBIN 29.1 pg (27.0-33.0); MEAN CORPUSCULAR HGB CONC 33.6 g/dl (32.0-36.5); MEAN CORPUSCULAR VOLUME 86.5 fl (80.0-96.0); PLATELET COUNT, AUTOMATED 195 10^3/uL (150-450); RED BLOOD COUNT 4.68 10^6/uL (4.00-5.40)
[2021-03-14 12:28] LABS: HEMOGLOBIN A1c 6.5 %
[2021-03-14 12:41] LABS: ALBUMIN 3.9 GM/DL (3.2-5.2); ALT/SGPT 60 U/L (12-78); BILIRUBIN,TOTAL 0.9 MG/DL (0.2-1.0); BLOOD UREA NITROGEN 16 MG/DL (7-18); CALCIUM LEVEL 9.6 MG/DL (8.8-10.2); CARBON DIOXIDE LEVEL 29 MEQ/L (21-32); CHLORIDE LEVEL 106 MEQ/L (98-107); CHOLESTEROL LEVEL 146 MG/DL (<200); CHOLESTEROL RISK RATIO 2.085 (<5); CREATININE FOR GFR 0.78 MG/DL (0.55-1.30); GLOMERULAR FILTRATION RATE > 60.0 (>39); GLUCOSE, FASTING 126 MG/DL (70-100); HDL CHOLESTEROL 70 MG/DL (>40); LDL CHOLESTEROL 56 MG/DL (<100); NON-HDL-C 76 MG/DL; POTASSIUM SERUM 4.3 MEQ/L (3.5-5.1); SODIUM LEVEL 141 MEQ/L (136-145); THYROID STIMULATING HORMONE 0.938 uIU/ML (0.358-3.740); TOTAL 25(OH) VITAMIN D 32.2 NG/ML (30.0-100.0); TOTAL PROTEIN 7.7 GM/DL (6.4-8.2); TRIGLYCERIDES LEVEL 100 MG/DL (<150)
== END ==
LOC: M LAB 11:28
PROVIDERS: ATTEND Family Medicine
DX: D64.9 Anemia, unspecified (principal); R53.83 Other fatigue; E03.9 Hypothyroidism, unspecified

== ENCOUNTER → 2022-01-15 | Outpatient (CLI) | payer BC, MEDICARE ==
[~2022-01-15] MED LIST changes: +OMEP-173 PO; -OMEP-218 PO
[2022-01-15 12:32] LABS: HEMATOCRIT 42.1 % (36.0-47.0); HEMOGLOBIN 14.2 g/dl (12.0-15.5); MEAN CORPUSCULAR HEMOGLOBIN 29.6 pg (27.0-33.0); MEAN CORPUSCULAR HGB CONC 33.7 g/dl (32.0-36.5); MEAN CORPUSCULAR VOLUME 87.7 fl (80.0-96.0); PLATELET COUNT, AUTOMATED 179 10^3/uL (150-450); WHITE BLOOD COUNT 6.7 10^3/uL (4.0-10.0)
[2022-01-15 18:33] LABS: ALBUMIN 3.9 GM/DL (3.2-5.2); ALT/SGPT 34 U/L (12-78); BILIRUBIN,TOTAL 1.1 MG/DL (0.2-1.0); BLOOD UREA NITROGEN 22 MG/DL (7-18); CALCIUM LEVEL 9.4 MG/DL (8.8-10.2); CARBON DIOXIDE LEVEL 28 MEQ/L (21-32); CHLORIDE LEVEL 105 MEQ/L (98-107); CHOLESTEROL LEVEL 114 MG/DL (<200); CHOLESTEROL RISK RATIO 1.628 (<5); CREATININE FOR GFR 0.78 MG/DL (0.55-1.30); GLOMERULAR FILTRATION RATE > 60.0 (>39); GLUCOSE, FASTING 95 MG/DL (70-100); HDL CHOLESTEROL 70 MG/DL (>40); LDL CHOLESTEROL 34 MG/DL (<100); NON-HDL-C 44 MG/DL; POTASSIUM SERUM 3.8 MEQ/L (3.5-5.1); SODIUM LEVEL 140 MEQ/L (136-145); THYROID STIMULATING HORMONE 0.693 uIU/ML (0.358-3.740); TOTAL PROTEIN 7.7 GM/DL (6.4-8.2); TRIGLYCERIDES LEVEL 52 MG/DL (<150)
[2022-01-15 18:47] LABS: TOTAL 25(OH) VITAMIN D 28.4 NG/ML (30.0-100.0)
[2022-01-16 00:26] LABS: HEMOGLOBIN A1c 7.4 %
== END ==
LOC: M LAB 11:58
PROVIDERS: ATTEND Family Medicine
DX: D64.9 Anemia, unspecified (principal); R53.83 Other fatigue; I10 Essential (primary) hypertension; E11.9 Type 2 diabetes mellitus without complications

== ENCOUNTER → 2022-04-15 | Outpatient (REF) | payer BC, MEDICARE | LOC: M LAB REF 14:42 | PROVIDERS: ATTEND Internal Medicine Gastroenterology | DX: R19.7 Diarrhea, unspecified (principal) ==

== ENCOUNTER → 2022-05-15 | Outpatient (CLI) | payer BC, MEDICARE ==
[2022-05-15 09:12] LABS: BASO % 0.6 % (0.0-1.0); EOS # 0.2 10^3/uL (0.0-0.5); EOS % 3.1 % (0.0-3.0); HEMATOCRIT 41.2 % (36.0-47.0); HEMOGLOBIN 13.5 g/dl (12.0-15.5); LYMPH % 19.8 % (24.0-44.0); MEAN CORPUSCULAR HEMOGLOBIN 29.3 pg (27.0-33.0); MEAN CORPUSCULAR HGB CONC 32.8 g/dl (32.0-36.5); MEAN CORPUSCULAR VOLUME 89.6 fl (80.0-96.0); MONO # 0.4 10^3/uL (0.0-0.8); MONO % 7.7 % (2.0-8.0); NEUTROPHILS # 3.6 10^3/uL (1.5-8.5); NEUTROPHILS % 68.2 % (36.0-66.0); PLATELET COUNT, AUTOMATED 181 10^3/uL (150-450); WHITE BLOOD COUNT 5.2 10^3/uL (4.0-10.0)
[2022-05-15 09:44] LABS: LIPASE 20 U/L (12-53)
[2022-05-15 09:46] LABS: ALKALINE PHOSPHATASE 87 U/L (46-116); ALT/SGPT 23 U/L (7.0-40); AST/SGOT 23 U/L (<34); BILIRUBIN,TOTAL 0.8 MG/DL (0.3-1.2); BLOOD UREA NITROGEN 27 MG/DL (9-23); CALCIUM LEVEL 9.3 MG/DL (8.3-10.6); CARBON DIOXIDE LEVEL 30 MMOL/L (20-31); CHLORIDE LEVEL 103 MMOL/L (98-107); CREATININE FOR GFR 0.89 MG/DL (0.55-1.30); GLOMERULAR FILTRATION RATE > 60.0 (>39); GLUCOSE, FASTING 124 MG/DL (74-106); SODIUM LEVEL 141 MMOL/L (136-145); TOTAL PROTEIN 7.4 G/DL (5.7-8.2)
== END ==
LOC: M LAB 08:36
PROVIDERS: ATTEND Internal Medicine Gastroenterology
DX: R94.5 Abnormal results of liver function studies (principal)

== ENCOUNTER → 2022-06-17 | Outpatient (CLI) | payer BC, MEDICARE ==
[~2022-06-17] MED LIST changes: +CRAN450T4 PO; +CREO12CA; +ERGO500029; +FAMO40TA3; +FARX1TAB3; +HYOS1TAB; +KP F1200 PO; +QC F0.52 PO; +VITA100093 PO
== END ==
LOC: M LABSMTC 09:31
PROVIDERS: ATTEND Anesthesiology
DX: Z01.818 Encounter for other preprocedural examination (principal)

== ENCOUNTER 2022-06-22 07:28 | Day surgery (SDC) | payer BC, MEDICARE ==
[~2022-06-22] VITALS: Ht 162.6 cm; Wt 65.8 kg
[~2022-06-22 07:28] MED LIST changes: +LIDOCAINE 2% 100MG/5ML SDV (FOR ANES.) As Ordered ONE; +NS 1,000 ML IV ONE; +propofoL 200 MG/20 ML VIAL As Ordered ONE
[2022-06-22 09:08] VITALS: BP 161/82
== END 2022-06-22 09:12 | disposition home or self-care (01) ==
LOC: M OPP 07:28
PROVIDERS: ATTEND Internal Medicine Gastroenterology
DX: K64.0 First degree hemorrhoids (principal); K57.30 Diverticulosis of large intestine without perforation or abscess without bleeding; I48.91 Unspecified atrial fibrillation; I10 Essential (primary) hypertension; E78.5 Hyperlipidemia, unspecified; E11.9 Type 2 diabetes mellitus without complications; K21.9 Gastro-esophageal reflux disease without esophagitis; M19.90 Unspecified osteoarthritis, unspecified site; F41.9 Anxiety disorder, unspecified; G47.30 Sleep apnea, unspecified; Z79.82 Long term (current) use of aspirin; Z79.84 Long term (current) use of oral hypoglycemic drugs; Z79.899 Other long term (current) drug therapy

== ENCOUNTER → 2023-01-25 | Outpatient (CLI) | payer BC, MEDICARE ==
[~2023-01-25] MED LIST changes: -LIDOCAINE 2% 100MG/5ML SDV (FOR ANES.) As Ordered ONE; -NS 1,000 ML IV ONE; -ROPI1TAB3 PO; +ROPI1TAB73 PO; -propofoL 200 MG/20 ML VIAL As Ordered ONE
[2023-01-25 08:03] LABS: HEMATOCRIT 44.9 % (36.0-47.0); HEMOGLOBIN 14.3 g/dl (12.0-15.5); MEAN CORPUSCULAR HEMOGLOBIN 28.2 pg (27.0-33.0); MEAN CORPUSCULAR HGB CONC 31.8 g/dl (32.0-36.5); MEAN CORPUSCULAR VOLUME 88.6 fl (80.0-96.0); PLATELET COUNT, AUTOMATED 150 10^3/uL (150-450); RED BLOOD COUNT 5.07 10^6/uL (4.00-5.40); WHITE BLOOD COUNT 5.4 10^3/uL (4.0-10.0)
[2023-01-25 08:11] LABS: HEMOGLOBIN A1c 7.8 % (4.0-6.0)
[2023-01-25 08:41] LABS: ALBUMIN 3.7 G/DL (3.2-5.2); ALKALINE PHOSPHATASE 80 U/L (46-116); ALT/SGPT 19 U/L (7.0-40); AST/SGOT 17 U/L (<34); BILIRUBIN,TOTAL 0.7 MG/DL (0.3-1.2); BLOOD UREA NITROGEN 20 MG/DL (9-23); CALCIUM LEVEL 9.7 MG/DL (8.3-10.6); CARBON DIOXIDE LEVEL 27 MMOL/L (20-31); CHLORIDE LEVEL 105 MMOL/L (98-107); CHOLESTEROL LEVEL 230 MG/DL (<200); CHOLESTEROL RISK RATIO 2.96 (<5); CREATININE FOR GFR 0.82 MG/DL (0.55-1.30); GLOMERULAR FILTRATION RATE > 60.0 (>39); GLUCOSE, FASTING 153 MG/DL (74-106); HDL CHOLESTEROL 77.6 MG/DL (>40); NON-HDL-C 152.4 MG/DL; POTASSIUM SERUM 4.2 MMOL/L (3.5-5.1); SODIUM LEVEL 140 MMOL/L (136-145); THYROID STIMULATING HORMONE 1.365 uIU/ML (0.55-4.78); TOTAL 25(OH) VITAMIN D 23.6 NG/ML (20.0-100.0); TOTAL PROTEIN 7.8 G/DL (5.7-8.2); TRIGLYCERIDES LEVEL 117 MG/DL (<150)
== END ==
LOC: M LAB 07:34
PROVIDERS: ATTEND Family Medicine
DX: I10 Essential (primary) hypertension (principal); D64.9 Anemia, unspecified; R53.83 Other fatigue; E11.9 Type 2 diabetes mellitus without complications

== ENCOUNTER 2023-06-03 14:34 | Inpatient (IN) | payer BC, MEDICARE ==
[~2023-06-03] VITALS: Ht 165.1 cm; Wt 70.5 kg
[~2023-06-03 14:34] MED LIST changes: -FARX1TAB3; +FARX1TAB3 PO
[2023-06-03] MEDS ORDERED: ONDANSETRON 4MG 2ML VIAL IV ONE (15:00)
[2023-06-03] MEDS: MORPHINE 4 MG/ML 1ML VIAL IV PRN ×2 (15:05→19:34)
[2023-06-03 15:24] LABS: BASO # 0.1 10^3/uL (0.0-0.2); BASO % 0.4 % (0.0-1.0); EOS # 0.1 10^3/uL (0.0-0.5); EOS % 0.8 % (0.0-3.0); HEMATOCRIT 39.1 % (36.0-47.0); HEMOGLOBIN 13.1 g/dl (12.0-15.5); LYMPH % 8.3 % (24.0-44.0); MEAN CORPUSCULAR HEMOGLOBIN 29.4 pg (27.0-33.0); MEAN CORPUSCULAR HGB CONC 33.5 g/dl (32.0-36.5); MEAN CORPUSCULAR VOLUME 87.9 fl (80.0-96.0); MONO # 0.4 10^3/uL (0.0-0.8); MONO % 3.7 % (2.0-8.0); NEUTROPHILS # 9.9 10^3/uL (1.5-8.5); NEUTROPHILS % 86.2 % (36.0-66.0); PLATELET COUNT, AUTOMATED 184 10^3/uL (150-450); RED BLOOD COUNT 4.45 10^6/uL (4.00-5.40); WHITE BLOOD COUNT 11.5 10^3/uL (4.0-10.0)
[2023-06-03 15:56] LABS: CREATININE FOR GFR 0.97 MG/DL (0.55-1.30); GLOMERULAR FILTRATION RATE 59.6 (>39); MAGNESIUM LEVEL 2.3 MG/DL (1.8-2.4); POTASSIUM SERUM 4.1 MMOL/L (3.5-5.1)
[2023-06-03 15:59] LABS: FREE T4 1.29 NG/DL (0.89-1.76); THYROID STIMULATING HORMONE 0.991 uIU/ML (0.55-4.78)
[2023-06-03 16:01] LABS: RSV AMPLIFICATION NEGATIVE (NEGATIVE)
[2023-06-03] MEDS ORDERED: ASPI81CH2 PO (16:02)
[2023-06-03] MEDS ORDERED: POTA1TAB21 PO (16:02)
[2023-06-03] MEDS ORDERED: DIPH2.5T15 PO (22:03)
[2023-06-03] MEDS ORDERED: ECOT81TA5 PO (22:03)
[2023-06-03] MEDS ORDERED: CARV12.5 PO (22:03)
[2023-06-03] MEDS ORDERED: IBUP-1720 PO (22:03)
[2023-06-03] MEDS ORDERED: HOME MED LIST COMPLETE! XX SCH (22:05)
[2023-06-03] MEDS ORDERED: LR 1,000 ML IV SCH (23:00)
[2023-06-03] MEDS ORDERED: GLUCOSE 4GM CHEW TABLET PO PRN (23:00)
[2023-06-03] MEDS ORDERED: GLUCAGON INJ 1MG VIAL SC PRN (23:00)
[2023-06-03] MEDS ORDERED: DEXTROSE 50% 50ML SYRINGE IV PRN (23:00)
[2023-06-03] MEDS ORDERED: HYDROMORPHONE HCL 0.5 MG/ 0.5 ML SYRINGE IV PRN (23:00)
[2023-06-04] VITALS (7 sets, daily range): BP systolic 111–139; BP diastolic 54–98; TEMP 97.5–98.2; O2SAT 94–98
[2023-06-04] MEDS: INSULIN LISPRO (NovoLOG) PER UNIT SC SCH ×4 (01:23→21:00)
[2023-06-04] MEDS: CARVedilol 12.5 MG TAB PO SCH ×2 (01:24→15:07)
[2023-06-04] MEDS: ALPRAZolam 0.5 MG TAB PO SCH ×2 (01:24→15:07)
[2023-06-04 06:28] LABS: BLOOD UREA NITROGEN 30 MG/DL (9-23); CARBON DIOXIDE LEVEL 30 MMOL/L (20-31); CHLORIDE LEVEL 107 MMOL/L (98-107); CREATININE FOR GFR 0.73 MG/DL (0.55-1.30); GLOMERULAR FILTRATION RATE > 60.0 (>39); GLUCOSE, FASTING 87 MG/DL (74-106); POTASSIUM SERUM 3.8 MMOL/L (3.5-5.1); SODIUM LEVEL 143 MMOL/L (136-145)
[2023-06-04] MEDS: D5W/0.9% SODIUM CHLORIDE 1,000 ML IV SCH (07:54)
[2023-06-04] MEDS: ATORVASTATIN 20 MG TAB PO SCH (15:06)
[2023-06-04] MEDS: NYSTATIN 100,000 UNITS/GM TOPICAL PWD 15GM TOP SCH (15:07)
[2023-06-04] MEDS: SPIRONOLACTONE 25 MG TAB PO SCH (15:09)
[2023-06-04] MEDS ORDERED: PREVNAR-20 VACCINE 0.5ML SYRINGE IM.IMMUN ONE (17:00)
[2023-06-04] MEDS ORDERED: propofoL 200 MG/20 ML VIAL As Ordered ONE (17:30)
[2023-06-04] MEDS ORDERED: fentaNYL 100 MCG/2 ML INJECTION As Ordered ONE ×2 (17:30→19:43)
[2023-06-04] MEDS ORDERED: LIDOCAINE 2% 100MG/5ML SDV (FOR ANES.) As Ordered ONE (17:32)
[2023-06-04] MEDS ORDERED: SUGAMMADEX SODIUM 500 MG/5 ML VIAL (BRIDION) As Ordered ONE (17:32)
[2023-06-04] MEDS ORDERED: ONDANSETRON 4MG 2ML VIAL As Ordered ONE (17:32)
[2023-06-04] MEDS ORDERED: ROCURONIUM BROMIDE 50MG/5ML VIAL As Ordered ONE (17:32)
[2023-06-04] MEDS ORDERED: ceFAZolin 1GM VIAL As Ordered ONE (17:37)
[2023-06-04] MEDS ORDERED: ceFAZolin 2 GM/D5W 50 ML IV BAG As Ordered ONE (17:55)
[2023-06-04] MEDS ORDERED: ETOMIDATE INJ 20MG/10ML VIAL As Ordered ONE (17:55)
[2023-06-04] MEDS ORDERED: ACETAMINOPHEN 1000MG 100ML IV BAG As Ordered ONE (18:39)
[2023-06-04] MEDS ORDERED: oxyCODONE 5MG TAB PO PRN (19:40)
[2023-06-04] MEDS ORDERED: MORPHINE 2 MG/ML 1ML VIAL IV PRN (19:40)
[2023-06-04] MEDS ORDERED: fentaNYL 100 MCG/2 ML INJECTION IV PRN (19:40)
[2023-06-04] MEDS ORDERED: ONDANSETRON 4MG 2ML VIAL IV PRN (19:40)
[2023-06-04] MEDS: ONDANSETRON 4MG 2ML VIAL IV PRN (19:52)
[2023-06-05 00:30] VITALS: BP 110/59; TEMP 97.7; O2SAT 95
[2023-06-05] MEDS: ALPRAZolam 0.5 MG TAB PO SCH ×2 (00:32→12:49)
[2023-06-05] MEDS: NYSTATIN 100,000 UNITS/GM TOPICAL PWD 15GM TOP SCH ×3 (00:35→22:00)
[2023-06-05] MEDS: HYDROMORPHONE HCL 0.5 MG/ 0.5 ML SYRINGE IV PRN ×3 (00:42→22:18)
[2023-06-05] MEDS: CARVedilol 12.5 MG TAB PO SCH ×2 (01:17→12:50)
[2023-06-05 01:30] VITALS: BP 112/56; TEMP 97.9; O2SAT 94
[2023-06-05] MEDS: ceFAZolin SOD 2 GM in IV 1 EA IV SCH ×3 (02:00→18:15)
[2023-06-05] MEDS: D5W/0.9% SODIUM CHLORIDE 1,000 ML IV SCH (03:40)
[2023-06-05 05:49] VITALS: BP 110/61; TEMP 97.9; O2SAT 97
[2023-06-05 07:31] LABS: BASO % 0.1 % (0.0-1.0); HEMATOCRIT 31.3 % (36.0-47.0); LYMPH # 0.6 10^3/uL (1.5-5.0); LYMPH % 7.6 % (24.0-44.0); MEAN CORPUSCULAR HEMOGLOBIN 29.7 pg (27.0-33.0); MEAN CORPUSCULAR HGB CONC 33.2 g/dl (32.0-36.5); MEAN CORPUSCULAR VOLUME 89.4 fl (80.0-96.0); MONO # 0.4 10^3/uL (0.0-0.8); MONO % 5.2 % (2.0-8.0); NEUTROPHILS # 6.9 10^3/uL (1.5-8.5); NEUTROPHILS % 86.6 % (36.0-66.0); PLATELET COUNT, AUTOMATED 157 10^3/uL (150-450); WHITE BLOOD COUNT 7.9 10^3/uL (4.0-10.0)
[2023-06-05 07:33] LABS: HEMOGLOBIN 10.4 g/dl (12.0-15.5)
[2023-06-05 08:28] LABS: BLOOD UREA NITROGEN 43 MG/DL (9-23); CALCIUM LEVEL 8.2 MG/DL (8.3-10.6); CARBON DIOXIDE LEVEL 20 MMOL/L (20-31); CHLORIDE LEVEL 103 MMOL/L (98-107); CREATININE FOR GFR 0.91 MG/DL (0.55-1.30); GLOMERULAR FILTRATION RATE > 60.0 (>39); GLUCOSE, FASTING 409 MG/DL (74-106); POTASSIUM SERUM 4.2 MMOL/L (3.5-5.1); SODIUM LEVEL 137 MMOL/L (136-145)
[2023-06-05] MEDS: INSULIN LISPRO (NovoLOG) PER UNIT SC SCH ×4 (08:49→20:09)
[2023-06-05 09:53] VITALS: BP 140/68; TEMP 98.2; O2SAT 94
[2023-06-05] MEDS: ATORVASTATIN 20 MG TAB PO SCH (12:49)
[2023-06-05] MEDS: SPIRONOLACTONE 25 MG TAB PO SCH (12:50)
[2023-06-05] MEDS ORDERED: HumuLIN R (REGULAR) INSULIN (NovoLIN R) **100U/ML** PER UNIT IV STA (13:44)
[2023-06-05 18:46] LABS: BLOOD UREA NITROGEN 38 MG/DL (9-23); CALCIUM LEVEL 8.8 MG/DL (8.3-10.6); CARBON DIOXIDE LEVEL 26 MMOL/L (20-31); CHLORIDE LEVEL 105 MMOL/L (98-107); CREATININE FOR GFR 0.75 MG/DL (0.55-1.30); GLOMERULAR FILTRATION RATE > 60.0 (>39); GLUCOSE, FASTING 261 MG/DL (74-106); POTASSIUM SERUM 4.1 MMOL/L (3.5-5.1); SODIUM LEVEL 139 MMOL/L (136-145)
[2023-06-05 21:03] VITALS: BP 129/89; TEMP 98.1; O2SAT 92
[2023-06-05] MEDS: HEPARIN SOD (PORCINE) 5000UNITS/ML 1ML VIAL/SYRINGE SC SCH (22:07)
[2023-06-06] MEDS: ALPRAZolam 0.5 MG TAB PO SCH ×2 (00:23→12:26)
[2023-06-06] MEDS: CARVedilol 12.5 MG TAB PO SCH ×2 (00:25→12:25)
[2023-06-06] MEDS: HEPARIN SOD (PORCINE) 5000UNITS/ML 1ML VIAL/SYRINGE SC SCH ×3 (05:58→21:27)
[2023-06-06 06:00] VITALS: BP 138/56; TEMP 98.2; O2SAT 94
[2023-06-06 07:43] LABS: BLOOD UREA NITROGEN 29 MG/DL (9-23); CARBON DIOXIDE LEVEL 28 MMOL/L (20-31); CHLORIDE LEVEL 104 MMOL/L (98-107); CREATININE FOR GFR 0.61 MG/DL (0.55-1.30); GLOMERULAR FILTRATION RATE > 60.0 (>39); GLUCOSE, FASTING 212 MG/DL (74-106); MAGNESIUM LEVEL 1.8 MG/DL (1.8-2.4); SODIUM LEVEL 140 MMOL/L (136-145)
[2023-06-06] MEDS: INSULIN LISPRO (NovoLOG) PER UNIT SC SCH ×4 (08:27→20:28)
[2023-06-06] MEDS: HYDROMORPHONE HCL 0.5 MG/ 0.5 ML SYRINGE IV PRN ×3 (08:35→21:27)
[2023-06-06] MEDS: ACETAMINOPHEN TAB 650MG DOSE (2X325MG) PO PRN ×2 (08:35→12:26)
[2023-06-06] MEDS: NYSTATIN 100,000 UNITS/GM TOPICAL PWD 15GM TOP SCH ×2 (09:00→21:00)
[2023-06-06] MEDS: SPIRONOLACTONE 25 MG TAB PO SCH (12:26)
[2023-06-06] MEDS: ATORVASTATIN 20 MG TAB PO SCH (12:26)
[2023-06-06] MEDS: DAPAGLIFLOZIN PROPANEDIOL 10MG TABLET (FARXIGA) PO SCH (13:44)
[2023-06-06 14:00] VITALS: BP 126/54; TEMP 98.1; O2SAT 92
[2023-06-06 21:14] VITALS: BP 148/69; TEMP 98.6; O2SAT 94
[2023-06-07] MEDS: ALPRAZolam 0.5 MG TAB PO SCH ×2 (00:52→12:31)
[2023-06-07] MEDS: CARVedilol 12.5 MG TAB PO SCH ×2 (00:52→12:32)
[2023-06-07] MEDS: HYDROMORPHONE HCL 0.5 MG/ 0.5 ML SYRINGE IV PRN ×3 (00:56→21:14)
[2023-06-07] MEDS: HEPARIN SOD (PORCINE) 5000UNITS/ML 1ML VIAL/SYRINGE SC SCH ×3 (05:34→21:10)
[2023-06-07 06:00] VITALS: BP 137/67; TEMP 98.6; O2SAT 95
[2023-06-07 06:50] LABS: BASO % 0.5 % (0.0-1.0); EOS # 0.1 10^3/uL (0.0-0.5); EOS % 1.8 % (0.0-3.0); HEMATOCRIT 30.5 % (36.0-47.0); LYMPH # 1.2 10^3/uL (1.5-5.0); LYMPH % 15.1 % (24.0-44.0); MEAN CORPUSCULAR HEMOGLOBIN 28.8 pg (27.0-33.0); MEAN CORPUSCULAR HGB CONC 32.8 g/dl (32.0-36.5); MEAN CORPUSCULAR VOLUME 87.9 fl (80.0-96.0); MONO # 0.7 10^3/uL (0.0-0.8); MONO % 8.8 % (2.0-8.0); NEUTROPHILS # 5.6 10^3/uL (1.5-8.5); NEUTROPHILS % 72.6 % (36.0-66.0); PLATELET COUNT, AUTOMATED 157 10^3/uL (150-450); RED BLOOD COUNT 3.47 10^6/uL (4.00-5.40); WHITE BLOOD COUNT 7.7 10^3/uL (4.0-10.0)
[2023-06-07 07:11] LABS: BLOOD UREA NITROGEN 20 MG/DL (9-23); CALCIUM LEVEL 8.9 MG/DL (8.3-10.6); CARBON DIOXIDE LEVEL 30 MMOL/L (20-31); CHLORIDE LEVEL 100 MMOL/L (98-107); GLOMERULAR FILTRATION RATE > 60.0 (>39); GLUCOSE, FASTING 171 MG/DL (74-106); MAGNESIUM LEVEL 1.8 MG/DL (1.8-2.4); POTASSIUM SERUM 4.1 MMOL/L (3.5-5.1); SODIUM LEVEL 135 MMOL/L (136-145)
[2023-06-07] MEDS: DAPAGLIFLOZIN PROPANEDIOL 10MG TABLET (FARXIGA) PO SCH (09:06)
[2023-06-07] MEDS: NYSTATIN 100,000 UNITS/GM TOPICAL PWD 15GM TOP SCH ×2 (09:07→21:10)
[2023-06-07] MEDS: INSULIN LISPRO (NovoLOG) PER UNIT SC SCH ×4 (09:07→21:21)
[2023-06-07] MEDS: ACETAMINOPHEN TAB 650MG DOSE (2X325MG) PO PRN (09:10)
[2023-06-07] MEDS: ATORVASTATIN 20 MG TAB PO SCH (12:32)
[2023-06-07] MEDS: SPIRONOLACTONE 25 MG TAB PO SCH (12:32)
[2023-06-07] MEDS ORDERED: PREVNAR-20 VACCINE 0.5ML SYRINGE IM.IMMUN ONE (13:00)
[2023-06-07 14:00] VITALS: BP 138/59; TEMP 97.5; O2SAT 94
[2023-06-07 20:00] VITALS: BP 134/68; TEMP 97.9; O2SAT 93
[2023-06-08] VITALS (11 sets, daily range): BP systolic 119–136; BP diastolic 56–57; TEMP 97.2–98.6; O2SAT 85–96
[2023-06-08] MEDS: ALPRAZolam 0.5 MG TAB PO SCH ×2 (01:53→13:43)
[2023-06-08] MEDS: CARVedilol 12.5 MG TAB PO SCH ×2 (01:53→13:44)
[2023-06-08] MEDS: ACETAMINOPHEN TAB 650MG DOSE (2X325MG) PO PRN (02:31)
[2023-06-08] MEDS: HYDROMORPHONE HCL 0.5 MG/ 0.5 ML SYRINGE IV PRN (02:33)
[2023-06-08] MEDS: HEPARIN SOD (PORCINE) 5000UNITS/ML 1ML VIAL/SYRINGE SC SCH ×3 (07:02→22:20)
[2023-06-08 07:58] LABS: BLOOD UREA NITROGEN 18 MG/DL (9-23); CALCIUM LEVEL 8.8 MG/DL (8.3-10.6); CARBON DIOXIDE LEVEL 28 MMOL/L (20-31); CHLORIDE LEVEL 100 MMOL/L (98-107); CREATININE FOR GFR 0.62 MG/DL (0.55-1.30); GLOMERULAR FILTRATION RATE > 60.0 (>39); GLUCOSE, FASTING 151 MG/DL (74-106); MAGNESIUM LEVEL 1.8 MG/DL (1.8-2.4); POTASSIUM SERUM 3.9 MMOL/L (3.5-5.1); SODIUM LEVEL 136 MMOL/L (136-145)
[2023-06-08] MEDS ORDERED: HYDROMORPHONE HCL 0.5 MG/ 0.5 ML SYRINGE IV PRN (08:45)
[2023-06-08] MEDS: DAPAGLIFLOZIN PROPANEDIOL 10MG TABLET (FARXIGA) PO SCH (09:24)
[2023-06-08] MEDS: INSULIN LISPRO (NovoLOG) PER UNIT SC SCH ×4 (09:25→21:00)
[2023-06-08] MEDS: NYSTATIN 100,000 UNITS/GM TOPICAL PWD 15GM TOP SCH ×2 (09:25→21:00)
[2023-06-08] MEDS: oxyCODONE 5MG TAB PO PRN ×3 (09:26→22:20)
[2023-06-08] MEDS: ONDANSETRON 4MG 2ML VIAL IV PRN (13:07)
[2023-06-08] MEDS: ATORVASTATIN 20 MG TAB PO SCH (13:41)
[2023-06-08] MEDS: SPIRONOLACTONE 25 MG TAB PO SCH (13:42)
[2023-06-09] MEDS: ALPRAZolam 0.5 MG TAB PO SCH ×2 (01:56→12:32)
[2023-06-09] MEDS: CARVedilol 12.5 MG TAB PO SCH ×2 (01:57→12:33)
[2023-06-09] MEDS: HEPARIN SOD (PORCINE) 5000UNITS/ML 1ML VIAL/SYRINGE SC SCH ×3 (06:29→20:56)
[2023-06-09 06:30] VITALS: BP 131/56; TEMP 97.2; O2SAT 97
[2023-06-09 06:31] LABS: BASO % 0.3 % (0.0-1.0); EOS % 0.4 % (0.0-3.0); HEMATOCRIT 31.4 % (36.0-47.0); HEMOGLOBIN 10.4 g/dl (12.0-15.5); LYMPH % 11.1 % (24.0-44.0); MEAN CORPUSCULAR HEMOGLOBIN 28.9 pg (27.0-33.0); MEAN CORPUSCULAR HGB CONC 33.1 g/dl (32.0-36.5); MEAN CORPUSCULAR VOLUME 87.2 fl (80.0-96.0); MONO # 0.8 10^3/uL (0.0-0.8); MONO % 8.6 % (2.0-8.0); NEUTROPHILS # 7.2 10^3/uL (1.5-8.5); NEUTROPHILS % 78.7 % (36.0-66.0); PLATELET COUNT, AUTOMATED 192 10^3/uL (150-450); WHITE BLOOD COUNT 9.2 10^3/uL (4.0-10.0)
[2023-06-09 07:00] LABS: BLOOD UREA NITROGEN 22 MG/DL (9-23); CALCIUM LEVEL 8.5 MG/DL (8.3-10.6); CARBON DIOXIDE LEVEL 27 MMOL/L (20-31); CHLORIDE LEVEL 98 MMOL/L (98-107); CREATININE FOR GFR 0.76 MG/DL (0.55-1.30); GLOMERULAR FILTRATION RATE > 60.0 (>39); GLUCOSE, FASTING 170 MG/DL (74-106); MAGNESIUM LEVEL 1.8 MG/DL (1.8-2.4); POTASSIUM SERUM 3.9 MMOL/L (3.5-5.1); SODIUM LEVEL 135 MMOL/L (136-145)
[2023-06-09] MEDS: oxyCODONE 5MG TAB PO PRN ×2 (08:39→20:55)
[2023-06-09] MEDS: ACETAMINOPHEN TAB 650MG DOSE (2X325MG) PO PRN (08:40)
[2023-06-09] MEDS: INSULIN LISPRO (NovoLOG) PER UNIT SC SCH ×4 (08:40→21:00)
[2023-06-09] MEDS: DAPAGLIFLOZIN PROPANEDIOL 10MG TABLET (FARXIGA) PO SCH (08:40)
[2023-06-09] MEDS: NYSTATIN 100,000 UNITS/GM TOPICAL PWD 15GM TOP SCH ×2 (08:41→20:56)
[2023-06-09] MEDS: SPIRONOLACTONE 25 MG TAB PO SCH (12:34)
[2023-06-09] MEDS: ATORVASTATIN 20 MG TAB PO SCH (12:34)
[2023-06-09 21:22] VITALS: BP 128/71; TEMP 98.9; O2SAT 92
[2023-06-10] MEDS: ALPRAZolam 0.5 MG TAB PO SCH ×2 (01:06→12:34)
[2023-06-10 01:07] VITALS: BP 125/55
[2023-06-10] MEDS: CARVedilol 12.5 MG TAB PO SCH ×2 (01:07→12:35)
[2023-06-10] MEDS: HEPARIN SOD (PORCINE) 5000UNITS/ML 1ML VIAL/SYRINGE SC SCH (05:18)
[2023-06-10 05:55] LABS: BASO % 0.5 % (0.0-1.0); EOS # 0.1 10^3/uL (0.0-0.5); HEMATOCRIT 29.1 % (36.0-47.0); HEMOGLOBIN 9.8 g/dl (12.0-15.5); LYMPH # 1.1 10^3/uL (1.5-5.0); LYMPH % 14.1 % (24.0-44.0); MEAN CORPUSCULAR HEMOGLOBIN 29.3 pg (27.0-33.0); MEAN CORPUSCULAR HGB CONC 33.7 g/dl (32.0-36.5); MEAN CORPUSCULAR VOLUME 86.9 fl (80.0-96.0); MONO # 0.8 10^3/uL (0.0-0.8); MONO % 9.7 % (2.0-8.0); NEUTROPHILS # 5.9 10^3/uL (1.5-8.5); PLATELET COUNT, AUTOMATED 178 10^3/uL (150-450); RED BLOOD COUNT 3.35 10^6/uL (4.00-5.40)
[2023-06-10 06:29] LABS: BLOOD UREA NITROGEN 22 MG/DL (9-23); CARBON DIOXIDE LEVEL 28 MMOL/L (20-31); CHLORIDE LEVEL 100 MMOL/L (98-107); CREATININE FOR GFR 0.72 MG/DL (0.55-1.30); GLOMERULAR FILTRATION RATE > 60.0 (>39); GLUCOSE, FASTING 142 MG/DL (74-106); MAGNESIUM LEVEL 1.9 MG/DL (1.8-2.4); SODIUM LEVEL 135 MMOL/L (136-145)
[2023-06-10 06:35] VITALS: BP 128/71; TEMP 99; O2SAT 96
[2023-06-10] MEDS: NYSTATIN 100,000 UNITS/GM TOPICAL PWD 15GM TOP SCH (09:40)
[2023-06-10] MEDS: INSULIN LISPRO (NovoLOG) PER UNIT SC SCH (09:41)
[2023-06-10] MEDS: DAPAGLIFLOZIN PROPANEDIOL 10MG TABLET (FARXIGA) PO SCH (09:41)
[2023-06-10] MEDS ORDERED: ACET1TAB55 PO (12:19)
[2023-06-10] MEDS ORDERED: NYST10006 TOP (12:19)
[2023-06-10] MEDS ORDERED: OXYC-517 PO (12:19)
[2023-06-10] MEDS: ATORVASTATIN 20 MG TAB PO SCH (12:35)
[2023-06-10] MEDS: SPIRONOLACTONE 25 MG TAB PO SCH (12:35)
== END 2023-06-10 13:10 | DRG 313 ==
LOC: EDBD 14:34 → M ED 14:34 → M ED INP 22:57 → ENRESERV 23:44 → M MS5PR 06-04 00:22
PROVIDERS: ADMIT Internal Medicine; ATTEND Internal Medicine
PROC: 0QSH04Z Reposition Left Tibia with Internal Fixation Device, Open Approach (ICD-10-PCS; principal; 2023-06-04 18:00)
DX: S82.142A Displaced bicondylar fracture of left tibia, initial encounter for closed fracture (principal); E11.65 Type 2 diabetes mellitus with hyperglycemia; I10 Essential (primary) hypertension; G47.33 Obstructive sleep apnea (adult) (pediatric); M19.90 Unspecified osteoarthritis, unspecified site; Z79.82 Long term (current) use of aspirin; Z79.899 Other long term (current) drug therapy; W19.XXXA Unspecified fall, initial encounter; Y92.018 Other place in single-family (private) house as the place of occurrence of the external cause; Y93.9 Activity, unspecified; Y99.8 Other external cause status; M19.031 Primary osteoarthritis, right wrist; M19.021 Primary osteoarthritis, right elbow

== ENCOUNTER → 2023-06-16 | Outpatient (CLI) | payer BC, MEDICARE ==
[~2023-06-16] MED LIST changes: +ACET1TAB55 PO; +ASPI81CH2 PO; +DIPH2.5T15 PO; +ECOT81TA5 PO; +IBUP-1720 PO; +NYST10006 TOP; +OXYC-517 PO; +POTA1TAB21 PO
== END ==
LOC: M SOG 08:04
PROVIDERS: ATTEND Physician Assistant
DX: Z47.89 Encounter for other orthopedic aftercare (principal)

== ENCOUNTER → 2023-07-14 | Outpatient (CLI) | payer BC, MEDICARE | LOC: M SOG 08:11 | PROVIDERS: ATTEND Orthopaedic Surgery | DX: Z47.89 Encounter for other orthopedic aftercare (principal) ==

== ENCOUNTER → 2023-08-23 | Outpatient (REF) | payer BC, MEDICARE | LOC: M LAB REF 16:40 | PROVIDERS: ATTEND Podiatrist | DX: L03.129 Acute lymphangitis of unspecified part of limb (principal) ==

== ENCOUNTER → 2023-08-25 | Outpatient (CLI) | payer BC, MEDICARE | LOC: M SOG 07:55 | PROVIDERS: ATTEND Orthopaedic Surgery | DX: Z47.89 Encounter for other orthopedic aftercare (principal) ==

== ENCOUNTER → 2023-12-27 | Outpatient (CLI) | payer BC, MEDICARE ==
[~2023-12-27] MED LIST changes: -CRAN400C PO; +CRANBERRY400 MG PO; +DIPH1TAB81 PO; -DIPH2.5T15 PO
[2023-12-27 10:04] LABS: HEMATOCRIT 36.9 % (36.0-47.0); HEMOGLOBIN 12.2 g/dl (12.0-15.5); MEAN CORPUSCULAR HEMOGLOBIN 29.6 pg (27.0-33.0); MEAN CORPUSCULAR HGB CONC 33.1 g/dl (32.0-36.5); MEAN CORPUSCULAR VOLUME 89.6 fl (80.0-96.0); PLATELET COUNT, AUTOMATED 230 10^3/uL (150-450); RED BLOOD COUNT 4.12 10^6/uL (4.00-5.40)
[2023-12-27 10:25] LABS: HEMOGLOBIN A1c 7.7 % (4.0-6.0)
[2023-12-27 10:36] LABS: THYROID STIMULATING HORMONE 1.511 uIU/ML (0.55-4.78); TOTAL 25(OH) VITAMIN D 39.9 NG/ML (20.0-100.0)
[2023-12-27 10:37] LABS: ALBUMIN 3.7 G/DL (3.2-5.2); BILIRUBIN,TOTAL 1.1 MG/DL (0.3-1.2); CALCIUM LEVEL 8.6 MG/DL (8.3-10.6); CHOLESTEROL RISK RATIO 2.67 (<5); CREATININE FOR GFR 1.14 MG/DL (0.55-1.30); GLOMERULAR FILTRATION RATE 49.5 (>39); HDL CHOLESTEROL 33.6 MG/DL (>40); NON-HDL-C 56.4 MG/DL
== END ==
LOC: M LAB 08:48
PROVIDERS: ATTEND Family Medicine
DX: I10 Essential (primary) hypertension (principal)

== ENCOUNTER → 2023-12-31 | Outpatient (CLI) | payer BC, MEDICARE | LOC: M SOG 12:52 | PROVIDERS: ATTEND Orthopaedic Surgery | DX: Z47.89 Encounter for other orthopedic aftercare (principal) ==

== ENCOUNTER → 2024-02-24 | Outpatient (CLI) | payer BC, MEDICARE | LOC: M PLAIMG 07:33 | PROVIDERS: ATTEND Registered Nurse | DX: I08.1 Rheumatic disorders of both mitral and tricuspid valves (principal) ==

== ENCOUNTER → 2024-04-07 | Outpatient (CLI) | payer BC, MEDICARE | LOC: M RAD 08:53 | PROVIDERS: ATTEND Registered Nurse | DX: I65.23 Occlusion and stenosis of bilateral carotid arteries (principal) ==

== ENCOUNTER → 2024-08-28 | Outpatient (CLI) | payer BC, MEDICARE ==
[2024-08-28 10:15] LABS: HEMATOCRIT 42.6 % (36.0-47.0); HEMOGLOBIN 14.1 g/dl (12.0-15.5); MEAN CORPUSCULAR HEMOGLOBIN 28.5 pg (27.0-33.0); MEAN CORPUSCULAR HGB CONC 33.1 g/dl (32.0-36.5); MEAN CORPUSCULAR VOLUME 86.1 fl (80.0-96.0); PLATELET COUNT, AUTOMATED 197 10^3/uL (150-450); RED BLOOD COUNT 4.95 10^6/uL (4.00-5.40); WHITE BLOOD COUNT 8.9 10^3/uL (4.0-10.0)
[2024-08-28 10:33] LABS: HEMOGLOBIN A1c 8.2 % (4.0-6.0)
[2024-08-28 10:42] LABS: ALBUMIN 4.1 G/DL (3.2-5.2); BILIRUBIN,TOTAL 0.7 MG/DL (0.3-1.2); CALCIUM LEVEL 9.4 MG/DL (8.3-10.6); CHOLESTEROL RISK RATIO 2.24 (<5); CREATININE FOR GFR 1.17 MG/DL (0.55-1.30); GLOMERULAR FILTRATION RATE 47.9 (>39); HDL CHOLESTEROL 48.5 MG/DL (>40); LDL CHOLESTEROL 40.3 MG/DL (<100); NON-HDL-C 60.5 MG/DL; PERCENT SATURATION 12.4 % (13.2-45.0); POTASSIUM SERUM 4.7 MMOL/L (3.5-5.1); TOTAL PROTEIN 7.9 G/DL (5.7-8.2)
[2024-08-28 10:43] LABS: THYROID STIMULATING HORMONE 1.262 uIU/ML (0.55-4.78)
[2024-08-28 10:44] LABS: TOTAL 25(OH) VITAMIN D 36.9 NG/ML (20.0-100.0)
== END ==
LOC: M LAB 09:20
PROVIDERS: ATTEND Family Medicine
DX: D64.9 Anemia, unspecified (principal); R53.83 Other fatigue; E03.9 Hypothyroidism, unspecified

== ENCOUNTER 2024-09-22 14:54 | Emergency (ER) | payer BC, MEDICARE ==
[2024-09-22] MEDS: TETRACAINE 0.5% OPHTH SOLN 4ML OD ONE (15:10)
[2024-09-22] MEDS: FLUORESCEIN OPHTH 1MG STRIP OD ONE (15:10)
[2024-09-22 15:32] LABS: BASO # 0.1 10^3/uL (0.0-0.2); BASO % 0.8 % (0.0-1.0); EOS # 0.2 10^3/uL (0.0-0.5); EOS % 3.2 % (0.0-3.0); HEMATOCRIT 41.2 % (36.0-47.0); HEMOGLOBIN 13.9 g/dl (12.0-15.5); LYMPH # 1.1 10^3/uL (1.5-5.0); LYMPH % 17.8 % (24.0-44.0); MEAN CORPUSCULAR HEMOGLOBIN 28.5 pg (27.0-33.0); MEAN CORPUSCULAR HGB CONC 33.7 g/dl (32.0-36.5); MEAN CORPUSCULAR VOLUME 84.6 fl (80.0-96.0); MONO # 0.4 10^3/uL (0.0-0.8); MONO % 6.8 % (2.0-8.0); NEUTROPHILS # 4.2 10^3/uL (1.5-8.5); NEUTROPHILS % 70.7 % (36.0-66.0); PLATELET COUNT, AUTOMATED 209 10^3/uL (150-450); RED BLOOD COUNT 4.87 10^6/uL (4.00-5.40); WHITE BLOOD COUNT 5.9 10^3/uL (4.0-10.0)
[2024-09-22] MEDS: valACYclovir HCL 500 MG TAB PO ONE (15:45)
[2024-09-22 15:56] LABS: CALCIUM LEVEL 9.3 MG/DL (8.3-10.6); CREATININE FOR GFR 1.21 MG/DL (0.55-1.30); GLOMERULAR FILTRATION RATE 46.5 (>39); POTASSIUM SERUM 3.9 MMOL/L (3.5-5.1)
[2024-09-22] MEDS ORDERED: VALT1TAB PO (16:11)
[2024-09-22 16:59] VITALS: BP 134/78; TEMP 98.7; O2SAT 98
== END 2024-09-22 16:58 | disposition home or self-care (01) ==
LOC: M ED 14:54
DX: B02.9 Zoster without complications (principal); I48.91 Unspecified atrial fibrillation; E11.65 Type 2 diabetes mellitus with hyperglycemia; I10 Essential (primary) hypertension; E78.00 Pure hypercholesterolemia, unspecified; G47.33 Obstructive sleep apnea (adult) (pediatric); F41.9 Anxiety disorder, unspecified; Z79.1 Long term (current) use of non-steroidal anti-inflammatories (NSAID); Z79.84 Long term (current) use of oral hypoglycemic drugs; Z79.899 Other long term (current) drug therapy

== ENCOUNTER 2025-01-10 21:49 | Inpatient (IN) | payer OTHER, BC, MEDICARE ==
[~2025-01-10] VITALS: Ht 160 cm; Wt 68.1 kg
[~2025-01-10 21:49] MED LIST changes: +LIDO1ADH93 TD; +VALT1TAB PO
[2025-01-11] VITALS (7 sets, daily range): BP systolic 99–148; BP diastolic 50–62; TEMP 97–97.7; O2SAT 94–99
[2025-01-11] MEDS: LIDOCAINE 2% 5 ML JELLY UROJET TOP ONE (01:00)
[2025-01-11] MEDS: ONDANSETRON 4MG 2ML VIAL IV ONE (01:15)
[2025-01-11] MEDS: MORPHINE 2 MG/ML 1 ML VIAL IV PRN (01:16)
[2025-01-11] MEDS ORDERED: ACETAMINOPHEN 325 MG TAB PO PRN (01:55)
[2025-01-11] MEDS ORDERED: MOM 30 ML SUSPENSION UDC PO PRN (01:55)
[2025-01-11] MEDS ORDERED: HEPARIN SOD 5000 UNITS/ML 1 ML VIAL/SYRINGE SC SCH (01:55)
[2025-01-11 02:41] LABS: PLATELET COUNT, AUTOMATED 198 10^3/uL (150-450)
[2025-01-11 02:53] LABS: INR 1.07
[2025-01-11] MEDS: LR 1,000 ML IV SCH ×2 (02:56→18:45)
[2025-01-11 03:13] LABS: ALT/SGPT 29.0 U/L (7.0-40); AST/SGOT 27.0 U/L (<34); CALCIUM LEVEL 9.1 MG/DL (8.3-10.6); CARBON DIOXIDE LEVEL 29.0 MMOL/L (20-31); CHLORIDE LEVEL 99.0 MMOL/L (98-107); CHOLESTEROL LEVEL 106.0 MG/DL (<200); CHOLESTEROL RISK RATIO 2.27 (<5); CREATININE FOR GFR 1.09 MG/DL (0.55-1.30); GLOMERULAR FILTRATION RATE 52.7 (>39); LDL CHOLESTEROL 38.5 MG/DL (<100); NON-HDL-C 59.5 MG/DL; POTASSIUM SERUM 3.7 MMOL/L (3.5-5.1); SODIUM LEVEL 140.0 MMOL/L (136-145); TRIGLYCERIDES LEVEL 105.0 MG/DL (<150)
[2025-01-11 03:19] LABS: ESTIMATED AVERAGE GLUCOSE 183.0 MG/DL (60-110)
[2025-01-11] MEDS: DOCUSATE SODIUM 100 MG CAPSULE PO SCH (09:00)
[2025-01-11] MEDS ORDERED: PRESCAP PO (10:07)
[2025-01-11] MEDS ORDERED: NYST1POW3 TOP (10:07)
[2025-01-11] MEDS ORDERED: MENT1ADH18 TD (10:07)
[2025-01-11] MEDS ORDERED: ACET-683 PO (10:07)
[2025-01-11] MEDS ORDERED: FURO40TA2 PO (10:07)
[2025-01-11] MEDS ORDERED: CALC1TAB91 PO (10:07)
[2025-01-11] MEDS ORDERED: HOME MED LIST COMPLETE! XX SCH (10:10)
[2025-01-11] MEDS ORDERED: SUGAMMADEX SODIUM 500 MG/5 ML VIAL As Ordered ONE (14:56)
[2025-01-11] MEDS ORDERED: ROCURONIUM BROMIDE 50MG/5ML VIAL As Ordered ONE (14:56)
[2025-01-11] MEDS ORDERED: LIDOCAINE 2% 100 MG/5 ML SDV (FOR ANES.) As Ordered ONE (14:56)
[2025-01-11] MEDS ORDERED: dexAMETHasone 4 MG/ML 1 ML VIAL As Ordered ONE (14:56)
[2025-01-11] MEDS ORDERED: ONDANSETRON 4MG 2ML VIAL As Ordered ONE (14:56)
[2025-01-11] MEDS ORDERED: ACETAMINOPHEN 1000MG/100ML IV BAG As Ordered ONE (14:58)
[2025-01-11] MEDS: TRANEXAMIC ACID 100 MG/ML 10ML VIAL As Ordered ONE (17:20)
[2025-01-11] MEDS ORDERED: HYDROMORPHONE HCL 0.5 MG/0.5 ML SYRINGE IV PRN (18:45)
[2025-01-11] MEDS ORDERED: DEXTROSE 50% 50 ML SYRINGE IV PRN (19:15)
[2025-01-11] MEDS ORDERED: GLUCAGON INJ 1 MG VIAL SC PRN (19:15)
[2025-01-11] MEDS: ONDANSETRON 4MG 2ML VIAL IV PRN (19:20)
[2025-01-11] MEDS: INSULIN LISPRO (NovoLOG) PER UNIT SC PRN (19:39)
[2025-01-11] MEDS: ASPIRIN 81 MG ENTERIC TABLET PO SCH (21:10)
[2025-01-11] MEDS ORDERED: GLUCOSE 4 GM CHEW PO PRN (22:05)
[2025-01-12] VITALS (9 sets, daily range): BP systolic 112–147; BP diastolic 52–63; TEMP 97–98.2; O2SAT 92–99
[2025-01-12] MEDS: ceFAZolin SODIUM 2 GM in DEXTROSE 5% (D5W) ADV/MINI-BAG 50 ML IV SCH (00:47)
[2025-01-12 07:14] LABS: BASO # 0.0 10^3/uL (0.0-0.2); BASO % 0.2 % (0.0-1.0); EOS # 0.0 10^3/uL (0.0-0.5); EOS % 0.0 % (0.0-3.0); LYMPH # 0.9 10^3/uL (1.5-5.0); LYMPH % 7.8 % (24.0-44.0); MONO # 0.4 10^3/uL (0.0-0.8); MONO % 3.6 % (2.0-8.0); NEUTROPHILS # 10.1 10^3/uL (1.5-8.5); NEUTROPHILS % 87.7 % (36.0-66.0); PLATELET COUNT, AUTOMATED 202 10^3/uL (150-450)
[2025-01-12 07:27] LABS: CALCIUM LEVEL 9.0 MG/DL (8.3-10.6); CARBON DIOXIDE LEVEL 22.0 MMOL/L (20-31); CHLORIDE LEVEL 98.0 MMOL/L (98-107); CREATININE FOR GFR 1.05 MG/DL (0.55-1.30); GLOMERULAR FILTRATION RATE 55.1 (>39); MAGNESIUM LEVEL 2.2 MG/DL (1.8-2.4); POTASSIUM SERUM 4.0 MMOL/L (3.5-5.1); SODIUM LEVEL 139.0 MMOL/L (136-145)
[2025-01-12] MEDS: INSULIN LISPRO (NovoLOG) PER UNIT SC SCH ×2 (08:31→17:06)
[2025-01-12] MEDS: ASCORBIC ACID 500 MG TAB PO SCH (08:32)
[2025-01-12] MEDS: FERROUS SULFATE 325 MG TAB PO SCH (08:32)
[2025-01-12] MEDS: TAMSULOSIN 0.4 MG CAP PO ONE (08:32)
[2025-01-12] MEDS: ONDANSETRON 4MG 2ML VIAL IV PRN (08:36)
[2025-01-12] MEDS: VITAMIN D 1,000 INTERNATIONAL UNITS TABLET PO SCH (10:47)
[2025-01-12] MEDS: LR 1,000 ML IV SCH (16:12)
[2025-01-12] MEDS: ENOXAPARIN 40 MG/0.4 ML SYRINGE (J1650 PER 10MG) SC SCH (16:53)
[2025-01-12] MEDS: CEFDINIR 300 MG CAP PO SCH (20:20)
[2025-01-12] MEDS ORDERED: INSULIN LISPRO (NovoLOG) PER UNIT SC SCH (21:00)
[2025-01-13 06:48] LABS: BASO # 0.0 10^3/uL (0.0-0.2); BASO % 0.2 % (0.0-1.0); EOS # 0.0 10^3/uL (0.0-0.5); EOS % 0.0 % (0.0-3.0); LYMPH # 1.0 10^3/uL (1.5-5.0); LYMPH % 9.8 % (24.0-44.0); MONO # 1.0 10^3/uL (0.0-0.8); MONO % 9.9 % (2.0-8.0); NEUTROPHILS # 7.7 10^3/uL (1.5-8.5); NEUTROPHILS % 79.4 % (36.0-66.0); PLATELET COUNT, AUTOMATED 183 10^3/uL (150-450)
[2025-01-13 06:59] VITALS: BP 129/46; TEMP 97.7; O2SAT 97
[2025-01-13 07:17] LABS: CALCIUM LEVEL 8.7 MG/DL (8.3-10.6); CARBON DIOXIDE LEVEL 28.0 MMOL/L (20-31); CHLORIDE LEVEL 100.0 MMOL/L (98-107); CREATININE FOR GFR 0.76 MG/DL (0.55-1.30); GLOMERULAR FILTRATION RATE 81.2 (>39); MAGNESIUM LEVEL 2.0 MG/DL (1.8-2.4); POTASSIUM SERUM 3.5 MMOL/L (3.5-5.1); SODIUM LEVEL 142.0 MMOL/L (136-145)
[2025-01-13] MEDS ORDERED: SENNA 8.6 MG TAB PO PRN (07:20)
[2025-01-13] MEDS: MIRALAX *UNIT DOSE* 17 GM PACKET PO SCH (08:39)
[2025-01-13] MEDS: INSULIN LISPRO (NovoLOG) PER UNIT SC SCH (12:22)
[2025-01-13] MEDS: PROMETHAZINE 25MG/ML 1ML VIAL IV PRN (12:23)
[2025-01-13 12:38] VITALS: BP 137/56
[2025-01-13 20:47] VITALS: BP 154/53; TEMP 98.2; O2SAT 94
[2025-01-14 06:57] VITALS: BP 151/59; TEMP 98.1; O2SAT 95
[2025-01-14 08:14] LABS: BASO # 0.0 10^3/uL (0.0-0.2); BASO % 0.3 % (0.0-1.0); EOS # 0.0 10^3/uL (0.0-0.5); EOS % 0.1 % (0.0-3.0); LYMPH # 1.1 10^3/uL (1.5-5.0); LYMPH % 12.7 % (24.0-44.0); MONO # 0.8 10^3/uL (0.0-0.8); MONO % 8.8 % (2.0-8.0); NEUTROPHILS # 6.7 10^3/uL (1.5-8.5); NEUTROPHILS % 77.1 % (36.0-66.0); PLATELET COUNT, AUTOMATED 193 10^3/uL (150-450)
[2025-01-14 08:48] LABS: IRON (FE) 37 UG/DL (50-170); PERCENT SATURATION 13.7 % (13.2-45.0)
[2025-01-14 09:04] LABS: CALCIUM LEVEL 8.3 MG/DL (8.3-10.6); CARBON DIOXIDE LEVEL 30 MMOL/L (20-31); CHLORIDE LEVEL 101 MMOL/L (98-107); CREATININE FOR GFR 0.61 MG/DL (0.55-1.30); GLOMERULAR FILTRATION RATE > 90.0 (>39); MAGNESIUM LEVEL 1.9 MG/DL (1.8-2.4); POTASSIUM SERUM 4.0 MMOL/L (3.5-5.1); SODIUM LEVEL 143 MMOL/L (136-145)
[2025-01-14] MEDS: FERRIC CARBOXYMALTOSE INJ 750 MG, VIAL MATE ADAPTER 1 EACH in NS 100 ML IV ONE (11:30)
[2025-01-14 12:00] VITALS: BP 150/52; TEMP 98.1; O2SAT 96
[2025-01-14 20:00] VITALS: BP 133/62; TEMP 98.2; O2SAT 93
[2025-01-15 06:45] VITALS: BP 159/60; TEMP 97; O2SAT 95
[2025-01-15 07:32] LABS: BASO # 0.0 10^3/uL (0.0-0.2); BASO % 0.2 % (0.0-1.0); EOS # 0.0 10^3/uL (0.0-0.5); EOS % 0.1 % (0.0-3.0); LYMPH # 0.9 10^3/uL (1.5-5.0); LYMPH % 10.5 % (24.0-44.0); MONO # 0.8 10^3/uL (0.0-0.8); MONO % 9.5 % (2.0-8.0); NEUTROPHILS # 6.6 10^3/uL (1.5-8.5); NEUTROPHILS % 78.6 % (36.0-66.0); PLATELET COUNT, AUTOMATED 193 10^3/uL (150-450)
[2025-01-15 07:47] LABS: CALCIUM LEVEL 8.1 MG/DL (8.3-10.6); CARBON DIOXIDE LEVEL 31 MMOL/L (20-31); CHLORIDE LEVEL 98 MMOL/L (98-107); CREATININE FOR GFR 0.58 MG/DL (0.55-1.30); GLOMERULAR FILTRATION RATE > 90.0 (>39); MAGNESIUM LEVEL 1.7 MG/DL (1.8-2.4); POTASSIUM SERUM 3.8 MMOL/L (3.5-5.1); SODIUM LEVEL 142 MMOL/L (136-145)
[2025-01-15] MEDS: MAG SULF 1GM/100ML (MAG RUN) 1 GM in IV 1 EA IV SCH (08:27)
[2025-01-15 12:00] VITALS: BP 154/60; TEMP 97.8; O2SAT 96
[2025-01-15] MEDS: BISACODYL 10 MG SUPP PR SCH (13:47)
[2025-01-15 15:46] VITALS: O2SAT 96
[2025-01-15] MEDS ORDERED: SENNA 8.6 MG TAB PO SCH (21:00)
== END 2025-01-15 16:05 | DRG 308 ==
LOC: M ED 21:49 → M ED INP 01-11 01:53 → M MS5PR 01-11 20:00
PROVIDERS: ADMIT Internal Medicine; ATTEND Internal Medicine
PROC: 0QS706Z Reposition Left Upper Femur with Intramedullary Internal Fixation Device, Open Approach (ICD-10-PCS; principal; 2025-01-11 15:00)
DX: S72.142A Displaced intertrochanteric fracture of left femur, initial encounter for closed fracture (principal); E11.42 Type 2 diabetes mellitus with diabetic polyneuropathy; I48.91 Unspecified atrial fibrillation; E83.42 Hypomagnesemia; I10 Essential (primary) hypertension; E78.5 Hyperlipidemia, unspecified; F41.9 Anxiety disorder, unspecified; G47.33 Obstructive sleep apnea (adult) (pediatric); M19.031 Primary osteoarthritis, right wrist; M19.021 Primary osteoarthritis, right elbow; K64.9 Unspecified hemorrhoids; R11.0 Nausea; D62 Acute posthemorrhagic anemia; K21.9 Gastro-esophageal reflux disease without esophagitis; E03.9 Hypothyroidism, unspecified; E87.6 Hypokalemia; K59.00 Constipation, unspecified; Z79.82 Long term (current) use of aspirin; Z79.899 Other long term (current) drug therapy; Z79.891 Long term (current) use of opiate analgesic; Z87.891 Personal history of nicotine dependence; W22.8XXA Striking against or struck by other objects, initial encounter; Z95.820 Peripheral vascular angioplasty status with implants and grafts; Y92.531 Health care provider office as the place of occurrence of the external cause; Y99.0 Civilian activity done for income or pay; Y93.E9 Activity, other interior property and clothing maintenance; Z79.84 Long term (current) use of oral hypoglycemic drugs

== ENCOUNTER 2025-01-15 13:48 | Inpatient (IN) | payer OTHER, BC, MEDICARE ==
[~2025-01-15] VITALS: Ht 160 cm; Wt 66.9 kg
[~2025-01-15 13:48] MED LIST changes: +ACET-683 PO; +CALC1TAB91 PO; +FURO40TA2 PO; +MENT1ADH18 TD; +NYST1POW3 TOP; +PRESCAP PO
[2025-01-15] MEDS ORDERED: MAALOX 30 ML SUSP *UDC PO PRN (14:45)
[2025-01-15] MEDS ORDERED: DEXTROSE 50% 50 ML SYRINGE IV PRN (14:45)
[2025-01-15] MEDS ORDERED: GLUCAGON INJ 1 MG VIAL SC PRN (14:45)
[2025-01-15] MEDS ORDERED: FLEET ENEMA PR PRN (14:45)
[2025-01-15] MEDS ORDERED: GLUCOSE 4 GM CHEW PO PRN (14:45)
[2025-01-15] MEDS ORDERED: SIMETHICONE 80MG CHEW TAB PO PRN (14:45)
[2025-01-15] MEDS ORDERED: MOM 30 ML SUSPENSION UDC PO PRN (14:45)
[2025-01-15] MEDS ORDERED: ONDANSETRON 4MG ORAL DISINTEGRATING TAB PO PRN (14:45)
[2025-01-15 16:10] VITALS: BP 143/65; TEMP 99.2; O2SAT 97
[2025-01-15] MEDS: INSULIN LISPRO (NovoLOG) PER UNIT SC SCH ×2 (18:49→21:08)
[2025-01-15 19:25] VITALS: BP 138/65; TEMP 98.9; O2SAT 97
[2025-01-15] MEDS: SENNOSIDES/DOCUSATE SODIUM 8.6 MG/50MG TAB PO SCH (21:00)
[2025-01-15] MEDS: NYSTATIN 100,000 UNITS/GM TOPICAL PWD 15 GM TOP SCH (21:00)
[2025-01-15] MEDS: ACETAMINOPHEN 500 MG TAB PO SCH (21:06)
[2025-01-15] MEDS: CEFDINIR 300 MG CAP PO SCH (21:07)
[2025-01-16] VITALS (11 sets, daily range): BP systolic 101–151; BP diastolic 46–69; TEMP 97.5–99.1; O2SAT 94–99
[2025-01-16 07:20] LABS: BASO # 0.0 10^3/uL (0.0-0.2); BASO % 0.3 % (0.0-1.0); EOS # 0.1 10^3/uL (0.0-0.5); EOS % 1.3 % (0.0-3.0); LYMPH # 0.8 10^3/uL (1.5-5.0); LYMPH % 10.5 % (24.0-44.0); MONO # 0.7 10^3/uL (0.0-0.8); MONO % 8.6 % (2.0-8.0); NEUTROPHILS # 6.1 10^3/uL (1.5-8.5); NEUTROPHILS % 77.6 % (36.0-66.0); PLATELET COUNT, AUTOMATED 184 10^3/uL (150-450)
[2025-01-16 07:45] LABS: ALT/SGPT < 9 U/L (7.0-40); AST/SGOT 14 U/L (<34); CALCIUM LEVEL 8.1 MG/DL (8.3-10.6); CARBON DIOXIDE LEVEL 32 MMOL/L (20-31); CHLORIDE LEVEL 96 MMOL/L (98-107); CREATININE FOR GFR 0.65 MG/DL (0.55-1.30); GLOMERULAR FILTRATION RATE > 90.0 (>39); POTASSIUM SERUM 4.0 MMOL/L (3.5-5.1); SODIUM LEVEL 137 MMOL/L (136-145)
[2025-01-16] MEDS: MIRALAX *UNIT DOSE* 17 GM PACKET PO SCH (09:00)
[2025-01-16] MEDS: ASPIRIN 81 MG ENTERIC TABLET PO SCH ×2 (09:50→20:55)
[2025-01-16] MEDS: ENOXAPARIN 40 MG/0.4 ML SYRINGE (J1650 PER 10MG) SC SCH (09:50)
[2025-01-16] MEDS: DAPAGLIFLOZIN PROPANEDIOL 10 MG TABLET PO SCH (09:51)
[2025-01-16] MEDS: SPIRONOLACTONE 25 MG TAB PO SCH (09:51)
[2025-01-16] MEDS: ATORVASTATIN 20 MG TAB PO SCH (09:51)
[2025-01-16] MEDS: FUROSEMIDE 40 MG TAB PO SCH (09:51)
[2025-01-16] MEDS: POTASSIUM CHLORIDE 10MEQ SR TABLET PO SCH (09:52)
[2025-01-16] MEDS: BISACODYL 5 MG TAB PO SCH (09:52)
[2025-01-16] MEDS: amLODIPine 10 MG TAB PO SCH (12:38)
[2025-01-16] MEDS ORDERED: **hydrALAZINE** 10 MG TAB PO PRN (16:45)
[2025-01-16 20:26] LABS: PLATELET COUNT, AUTOMATED 188 10^3/uL (150-450)
[2025-01-16] MEDS: SENNA 8.6 MG TAB PO SCH (20:56)
[2025-01-16] MEDS: DOCUSATE SODIUM 100 MG CAPSULE PO SCH (20:56)
[2025-01-17 03:30] VITALS: BP 142/63; TEMP 98; O2SAT 95
[2025-01-17] MEDS: FERROUS GLUCONATE 324 MG TAB PO SCH (08:43)
[2025-01-17 12:22] VITALS: BP 132/58; TEMP 97.9; O2SAT 98
[2025-01-17 20:00] VITALS: BP 154/70; TEMP 98.1; O2SAT 96
[2025-01-17] MEDS: amLODIPine 5 MG TAB PO SCH (20:42)
[2025-01-18 04:00] VITALS: BP 151/68; TEMP 97.6; O2SAT 98
[2025-01-18 05:35] LABS: PLATELET COUNT, AUTOMATED 242 10^3/uL (150-450)
[2025-01-18] MEDS: DIPHENOXYLATE HCL/ATROPINE 2.5 MG/0.025 MG TABLET PO PRN (11:54)
[2025-01-18 11:58] VITALS: BP 138/61
[2025-01-18] MEDS: amLODIPine 5 MG TAB PO SCH (12:06)
[2025-01-18 12:10] VITALS: BP 134/63; TEMP 98.2; O2SAT 98
[2025-01-18] MEDS: FIBER-CON 625 MG TAB PO ONE (14:23)
[2025-01-18] MEDS: FIBER-CON 625 MG TAB PO SCH (17:56)
[2025-01-18 20:00] VITALS: BP 143/63; TEMP 97.8; O2SAT 97
[2025-01-19 04:00] VITALS: BP 114/66; TEMP 98.5; O2SAT 97
[2025-01-19 12:00] VITALS: BP 143/61; TEMP 97.7; O2SAT 97
[2025-01-19 20:08] VITALS: BP 135/60; TEMP 97.8; O2SAT 96
[2025-01-19] MEDS: LOPERAMIDE 2 MG CAPLET PO SCH (20:24)
[2025-01-20 04:02] VITALS: BP 140/65; TEMP 98.9; O2SAT 97
[2025-01-20 12:00] VITALS: BP 132/60; TEMP 98.8; O2SAT 98
[2025-01-20] MEDS: ALPRAZolam 0.5 MG TAB PO PRN (12:11)
[2025-01-20 19:53] VITALS: BP 129/59; TEMP 96.3; O2SAT 97
[2025-01-20] MEDS: VANICREAM MOISTURIZING SKIN CREAM 113GM TUBE TOP SCH (20:27)
[2025-01-21 03:44] VITALS: BP 124/60; TEMP 98.2; O2SAT 97
[2025-01-21 12:00] VITALS: BP 134/63; TEMP 98.2; O2SAT 97
[2025-01-21 20:00] VITALS: BP 127/58; TEMP 98; O2SAT 98
[2025-01-22 03:27] VITALS: BP 137/62; TEMP 97.5; O2SAT 97
[2025-01-22 11:56] VITALS: BP 131/58; TEMP 97.6; O2SAT 99
[2025-01-22] MEDS ORDERED: SIME80CH6 PO (14:19)
[2025-01-22] MEDS ORDERED: AMLO1TAB24 PO (14:19)
[2025-01-22] MEDS ORDERED: CARV12.5 PO (14:19)
[2025-01-22] MEDS ORDERED: FIBE62TA PO (14:19)
[2025-01-22] MEDS ORDERED: ACET-683 PO (14:19)
[2025-01-22] MEDS ORDERED: FERR32TA PO (14:19)
[2025-01-22] MEDS ORDERED: ASPI81TAEC PO (14:19)
[2025-01-22] MEDS ORDERED: OXYC-517 PO (14:19)
[2025-01-22 19:40] VITALS: BP 131/60; TEMP 97.8; O2SAT 97
[2025-01-23 03:15] VITALS: BP 137/65; TEMP 98.9; O2SAT 98
[2025-01-23 08:24] VITALS: BP 132/63
== END 2025-01-23 13:30 | disposition home health service (06) | DRG 862 ==
LOC: M PM&R 16:10
PROVIDERS: ADMIT Physical Medicine & Rehabilitation; ATTEND Physical Medicine & Rehabilitation
PROC: 30233N1 Transfusion of Nonautologous Red Blood Cells into Peripheral Vein, Percutaneous Approach (ICD-10-PCS; principal; 2025-01-16)
DX: S72.142D Displaced intertrochanteric fracture of left femur, subsequent encounter for closed fracture with routine healing (principal); L89.626 Pressure-induced deep tissue damage of left heel; E11.42 Type 2 diabetes mellitus with diabetic polyneuropathy; D62 Acute posthemorrhagic anemia; I48.91 Unspecified atrial fibrillation; I10 Essential (primary) hypertension; E78.5 Hyperlipidemia, unspecified; K21.9 Gastro-esophageal reflux disease without esophagitis; M19.90 Unspecified osteoarthritis, unspecified site; E03.9 Hypothyroidism, unspecified; F41.9 Anxiety disorder, unspecified; G47.33 Obstructive sleep apnea (adult) (pediatric); Z95.820 Peripheral vascular angioplasty status with implants and grafts; R11.2 Nausea with vomiting, unspecified; K59.00 Constipation, unspecified; D50.9 Iron deficiency anemia, unspecified; R42 Dizziness and giddiness; E87.6 Hypokalemia; G89.29 Other chronic pain; R19.7 Diarrhea, unspecified; Z87.891 Personal history of nicotine dependence; Z79.82 Long term (current) use of aspirin; Z79.84 Long term (current) use of oral hypoglycemic drugs; Z79.899 Other long term (current) drug therapy

== ENCOUNTER → 2025-01-25 | Outpatient (CLI) | payer OTHER, BC, MEDICARE ==
[~2025-01-25] MED LIST changes: +ASPI81TAEC PO; +FERR32TA PO; +FIBE62TA PO; +SIME80CH6 PO
== END ==
LOC: M SOG 06:52
PROVIDERS: ATTEND Orthopaedic Surgery
DX: S72.142A Displaced intertrochanteric fracture of left femur, initial encounter for closed fracture (principal); Z47.89 Encounter for other orthopedic aftercare

== ENCOUNTER → 2025-02-19 | Outpatient (CLI) | payer OTHER, BC, MEDICARE ==
[2025-02-19 11:25] LABS: ESTIMATED AVERAGE GLUCOSE 166.0 MG/DL (60-110)
[2025-02-19 11:46] LABS: ALT/SGPT 28.0 U/L (7.0-40); AST/SGOT 24.0 U/L (<34); CALCIUM LEVEL 10.3 MG/DL (8.3-10.6); CARBON DIOXIDE LEVEL 31.0 MMOL/L (20-31); CHLORIDE LEVEL 98.0 MMOL/L (98-107); CHOLESTEROL LEVEL 144.0 MG/DL (<200); CHOLESTEROL RISK RATIO 2.54 (<5); CREATININE FOR GFR 0.8 MG/DL (0.55-1.30); GLOMERULAR FILTRATION RATE 75.8 (>39); LDL CHOLESTEROL 61.8 MG/DL (<100); NON-HDL-C 87.4 MG/DL; POTASSIUM SERUM 4.4 MMOL/L (3.5-5.1); SODIUM LEVEL 141.0 MMOL/L (136-145); TRIGLYCERIDES LEVEL 128.0 MG/DL (<150)
== END ==
LOC: M LAB 09:39
PROVIDERS: ATTEND Family Medicine Addiction Medicine
DX: E11.9 Type 2 diabetes mellitus without complications (principal)

== ENCOUNTER → 2025-02-27 | Outpatient (CLI) | payer OTHER, BC, MEDICARE | LOC: M SOG 07:31 | PROVIDERS: ATTEND Orthopaedic Surgery | DX: Z47.89 Encounter for other orthopedic aftercare (principal); S72.142D Displaced intertrochanteric fracture of left femur, subsequent encounter for closed fracture with routine healing ==

== ENCOUNTER → 2025-03-15 | Outpatient (REF) | payer OTHER, BC, MEDICARE | LOC: M LAB REF 17:55 | PROVIDERS: ATTEND Podiatrist | DX: L03.119 Cellulitis of unspecified part of limb (principal) ==

== ENCOUNTER → 2025-04-10 | Outpatient (CLI) | payer BC, MEDICARE | LOC: M SOG 07:27 | PROVIDERS: ATTEND Orthopaedic Surgery | DX: S72.142D Displaced intertrochanteric fracture of left femur, subsequent encounter for closed fracture with routine healing (principal) ==

== ENCOUNTER → 2025-04-25 | Outpatient (CLI) | payer BC, MEDICARE | LOC: M RAD 10:06 | PROVIDERS: ATTEND Nurse Practitioner Family | DX: I65.23 Occlusion and stenosis of bilateral carotid arteries (principal) ==

== ENCOUNTER → 2025-05-01 | Outpatient (REF) | payer BC, MEDICARE ==
[2025-05-01 13:18] LABS: BASO # 0.1 10^3/uL (0.0-0.2); BASO % 0.8 % (0.0-1.0); EOS # 0.2 10^3/uL (0.0-0.5); EOS % 2.6 % (0.0-3.0); LYMPH # 1.3 10^3/uL (1.5-5.0); LYMPH % 17.3 % (24.0-44.0); MONO # 0.6 10^3/uL (0.0-0.8); MONO % 7.6 % (2.0-8.0); NEUTROPHILS # 5.4 10^3/uL (1.5-8.5); NEUTROPHILS % 70.8 % (36.0-66.0); PLATELET COUNT, AUTOMATED 245 10^3/uL (150-450)
[2025-05-01 13:20] LABS: MAGNESIUM LEVEL 2.0 MG/DL (1.8-2.4)
[2025-05-01 13:22] LABS: IRON (FE) 76.0 UG/DL (50-170)
== END ==
LOC: M LAB REF 12:18
PROVIDERS: ATTEND Family Medicine Addiction Medicine
DX: D64.9 Anemia, unspecified (principal); E83.42 Hypomagnesemia

== ENCOUNTER → 2025-05-23 | Outpatient (CLI) | payer BC, MEDICARE ==
[~2025-05-23] MED LIST changes: -SULF400T14 PO; +SULF400T15 PO
== END ==
LOC: M SOG 07:35
PROVIDERS: ATTEND Orthopaedic Surgery
DX: S72.142D Displaced intertrochanteric fracture of left femur, subsequent encounter for closed fracture with routine healing (principal); X58.XXXD Exposure to other specified factors, subsequent encounter; Y92.9 Unspecified place or not applicable; Y93.9 Activity, unspecified; Y99.9 Unspecified external cause status

== ENCOUNTER → 2025-06-01 | Outpatient (CLI) | payer BC, MEDICARE | LOC: M RAD 11:08 | PROVIDERS: ATTEND Podiatrist | DX: I70.245 Atherosclerosis of native arteries of left leg with ulceration of other part of foot (principal); I70.201 Unspecified atherosclerosis of native arteries of extremities, right leg; L97.928 Non-pressure chronic ulcer of unspecified part of left lower leg with other specified severity ==

== ENCOUNTER → 2025-06-05 | Outpatient (CLI) | payer BC, MEDICARE | LOC: M CARPUL 09:00 | PROVIDERS: ATTEND Nurse Practitioner Family | DX: R94.31 Abnormal electrocardiogram [ECG] [EKG] (principal); I65.23 Occlusion and stenosis of bilateral carotid arteries | CPT/HCPCS: 78452; 93017; A9500; J2785 ==